=== PATIENT | male | born 1985 | race Caucasian/White ===

== ENCOUNTER 2019-04-13 21:42 | Inpatient (IN) | payer SELFPAY ==
[2019-04-13 22:03] VITALS: BP 146/98; PULSE 120; PULSE 124; RESP 24; RESP 28; TEMP 36.4; O2SAT 94; O2SAT 95; BMI 33.5
--- NOTE | 2019-04-13 22:05 | XRR_ITS ---
PROCEDURE INFORMATION: Exam: XR Chest, 1 View Exam date and time: 04/13/2019 10:46 PM Age: 33 years old Clinical indication: Chest pain; On breathing; Patient HX: SOB; Additional info: Short of breath TECHNIQUE: Imaging protocol: XR of the chest Views: 1 view. COMPARISON: No relevant prior studies available. FINDINGS: Lungs: Nonspecific bibasilar consolidation is present, consistent with atelectasis, edema, or pneumonia. This is greater on the right. There is mild vascular congestion and cephalization of flow. Pleural space: Unremarkable. No pleural effusion. No pneumothorax. Heart/Mediastinum: The heart is enlarged. Bones/joints: No acute abnormality. XR/XR chest 1V portable [id number] IMPRESSION: Nonspecific bibasilar consolidation is present, consistent with atelectasis, edema, or pneumonia. This is greater on the right.
--- NOTE | 2019-04-13 22:07 | W.ED.GENADLT ---
HPI - General Adult General: Chief complaint: General Medical Stated complaint: COUGH Time Seen by Provider: 04/13/19 22:02 History of Present Illness: HPI narrative: Patient comes in today with complaints of cough and pain with deep respiration. Patient reports illness for the last 2 days. Patient is anxious. Patient denies any chronic medical problems or history. Associated symptoms: Reports dyspnea Review of Systems General: Reports: 10 or more systems reviewed and unremarkable except in HPI and below Resp: Reports: shortness of breath and non-productive cough PFSH ED PFSH: Statuses (acute, chronic, etc) shown below reflect problem list status as previously entered and may not be historically accurate Social History Smoking and tobacco status: never smoked Physical Exam Const: COMMON NORMALS: no apparent distress and oriented x3 GENERAL APPEARANCE: cooperative HENMT: COMMON NORMALS: normocephalic, external ears normal, EAC's normal, TM's normal bilaterally and external nose normal HEAD & SCALP: normal to inspection and normocephalic FACE & SINUS: normal facial exam NOSE: external nose normal GENERAL EAR: hearing not grossly impaired EXTERNAL EAR: Yes external ears normal EXTERNAL AUDITORY CANAL: EAC's normal TYMPANIC MEMBRANE: TM's normal bilaterally MOUTH: oral and palatal mucosa normal THROAT: posterior oropharynx normal Eye: COMMON NORMALS: PERRL and EOMs intact bilaterally PUPIL: Yes PERRL Neck/C-Spine: COMMON NORMALS: full ROM and no lymphadenopathy Lymph: LYMPHATIC: no lymphedema noted Chest: COMMONS NORMALS: inspection of chest normal and palpation of chest normal Resp: COMMON NORMALS: normal respiratory effort AUSCULTATION: rhonchi (mild) upper bilaterally Cardio: COMMON NORMALS: regular rate and regular rhythm RATE: regular rate RHYTHM: regular rhythm GI: COMMON NORMALS: normal to inspection, nondistended, normoactive bowel sounds and non-tender : COMMON NORMALS: Yes no CVA tenderness BLADDER/KIDNEY EXAM: Yes no CVA tenderness Back/Pelvis: COMMON NORMALS: no CVA tenderness and thoracic and lumbar spine normal to inspection Extremity: COMMON NORMALS: normal to inspection GENERAL: No edema Neuro: COMMON NORMALS: oriented x3, moves all extremities and no focal motor deficits Psych: COMMON NORMALS: cooperative ATTITUDE: Yes other (anxious) Skin: COMMON NORMALS: no rashes or lesions noted GENERAL SKIN EXAM: no rashes or lesions noted Course Vital Signs: Vital signs: Vital Signs Temperature 97.6 F 04/13/19 22:03 Pulse Rate 115 H 04/14/19 02:31 Respiratory Rate 25 H 04/14/19 02:31 Blood Pressure 141/101 04/14/19 02:31 Pulse Oximetry 95 04/14/19 02:31 MDM - General Adult MDM Narrative: Medical decision making narrative: Patient comes in today with complaints of shortness of breath for the last week. Patient states that over 1 week he has had increasing shortness of breath to the point that he was unable to get up and go to work today. 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 Patient does have a history of drug use which is methamphetamines. Patient does report no other chronic medical history. Respirations were tachypneic in the upper 20s, lungs were decreased in the bases. Pulse oxygen was 95% on room air. Skin was warm and dry color is pink. Abdomen was soft nontender. Differential diagnosis is influenza, pneumonia, bronchitis, upper respiratory infection. Review of the chest x-ray noted pneumonia in the bilaterally and increased on the right. And very enlarged heart. This prompted further investigation of the heart. Laboratory values noted a slight elevation leukocytes of 12,000, CMP was insignificant. EKG noted sinus tachycardia in the 110s with l left atrial enlargement and a left axis deviation. Troponin was elevated at 500, and BNP was slightly elevated at 6000. D-dimer was high at 1.26. CTA for PE protocol noted no pulmonary emboli and just reinforced the infiltrate bibasilar with increased on the right and possible pulmonary edema. It was reviewed with Dr. Taveras who agreed to discuss with hospitalist further treatment with as inpatient for evaluation for endocarditis or myocarditis. Patient was started on Lasix and nitrates and will be continued on antibiotics for pneumonia. Patient did admit to use of methamphetamines but reports that he had stopped 3 months ago when he started getting weaker and having more shortness of breath. Further laboratory testing did show that patient did test positive for amphetamines today remainder of labs were again insignificant. Patient needs admission for monitoring, IV antibiotics, further testing with echocardiogram. Lab Data: Labs: Lab Results 04/13/19 04/13/19 04/13/19 Range/Units 11:01 11:01 11:01 WBC 12.1 H (4.0-10.0) 10^3/ uL RBC 5.14 (4.1-5.3) 10^6/u L Hgb 12.9 (11.7-16.6) g/dL Hct 43.9 (42.0-52.0) % MCV 85.4 (80-94) fL MCH 25.1 L (28.0-34.0) pg MCHC 29.4 L (30.0-36.0) g/dL RDW 15.5 H (12.1-15.1) % Plt Count 346 (130-400) 10^3/c mm MPV 10.8 H (7.4-10.4) fL Neut % (Auto) 80.0 % Lymph % (Auto) 14.1 % Mesa % (Auto) 4.1 % Eos % (Auto) 0.9 % Baso % (Auto) 0.5 % Neut # (Auto) 9.7 H (1.8-7.7) 10^3/u L Lymph # (Auto) 1.7 (0.8-4.8) 10^3/u L Mesa # (Auto) 0.5 (0.2-0.9) 10^3/u L Eos # (Auto) 0.1 (0.0-0.8) 10^3/u L Baso # (Auto) 0.1 (0.0-0.1) 10^3/u L Nucleated RBC % (a uto) 0 % Nucleated RBCs # 0.0 /100WBC D-Dimer 1.26 H (0-0.59) ug/mIFE U Sodium 139 (136-145) mmol/L Potassium 4.4 (3.5-5.1) mmol/L Chloride 105 (98-107) mmol/L Carbon Dioxide 23 (22-29) mmol/L Anion Gap 15.4 (5-19) BUN 15 (6-20) mg/dL Creatinine 1.1 (0.7-1.2) mg/dL GFR Calculation 76.6 L (90-130) mL/min Glucose 141 H (74-109) mg/dL Lactic Acid (0.5-2.2) mmol/L Calcium 9.3 (8.5-10.5) mg/dL Total Bilirubin 0.6 (0.15-1.2) mg/dL AST 27 (0-40) U/L ALT 26 (0-41) U/L Alkaline Phosphata se 92 (40-130) IU/L Troponin T Baselin e (0-15) ng/mL Troponin T 120 Min [place] (0-15) ng/mL Delta Troponin T (0-10) ABS# NT-Pro-B Natriuret Pep (0-125) pg/mL Total Protein 6.6 (6.6-8.7) g/dL Albumin 3.4 L (3.5-5.2) g/dL Globulin 3.2 (1.3-4.6) g/dL TSH (0.27-4.20) uIU/ mL Urine Opiates Scre en (Negative) ng/mL Ur Barbiturates Sc reen (Negative) ng/mL Ur Phencyclidine S crn (Negative) ng/mL Ur Amphetamines Sc reen (Negative) ng/mL U Benzodiazepines Scrn (Negative) ng/mL Urine Cocaine Scre en (Negative) ng/mL U Marijuana (THC) Screen (Negative) ng/mL Ethyl Alcohol (0-10) mg/dL Influenza Type A A g (Negative) POC Influenza B Ag (Negative) 04/13/19 04/13/19 04/14/19 Range/Units 11:01 22:15 00:01 WBC (4.0-10.0) 10^3/ uL RBC (4.1-5.3) 10^6/u L Hgb (11.7-16.6) g/dL Hct (42.0-52.0) % MCV (80-94) fL MCH (28.0-34.0) pg MCHC (30.0-36.0) g/dL RDW (12.1-15.1) % Plt Count (130-400) 10^3/c mm MPV (7.4-10.4) fL Neut % (Auto) % Lymph % (Auto) % Mes[place] % (Auto) % Eos % (Auto) % Baso % (Auto) % Neut # (Auto) (1.8-7.7) 10^3/u L Lymph # (Auto) (0.8-4.8) 10^3/u L Mesa # (Auto) (0.2-0.9) 10^3/u L Eos # (Auto) (0.0-0.8) 10^3/u L Baso # (Auto) (0.0-0.1) 10^3/u L Nucleated RBC % (a uto) % Nucleated RBCs # /100WBC D-Dimer (0-0.59) ug/mIFE U Sodium (136-145) mmol/L Potassium (3.5-5.1) mmol/L Chloride (98-107) mmol/L Carbon Dioxide (22-29) mmol/L Anion Gap (5-19) BUN (6-20) mg/dL Creatinine (0.7-1.2) mg/dL GFR Calculation (90-130) mL/min Glucose (74-109) mg/dL Lactic Acid (0.5-2.2) mmol/L Calcium (8.5-10.5) mg/dL Total Bilirubin (0.15-1.2) mg/dL AST (0-40) U/L ALT (0-41) U/L Alkaline Phosphata se (40-130) IU/L Troponin T Baselin e 505 H* (0-15) ng/mL Troponin T 120 Min [place] (0-15) ng/mL Delta Troponin T (0-10) ABS# NT-Pro-B Natriuret Pep (0-125) pg/mL Total Protein (6.6-8.7) g/dL Albumin (3.5-5.2) g/dL Globulin (1.3-4.6) g/dL TSH (0.27-4.20) uIU/ mL Urine Opiates Scre en Negative (Negative) ng/mL Ur Barbiturates Sc reen Negative (Negative) ng/mL Ur Phencyclidine S crn Negative (Negative) ng/mL Ur Amphetamines Sc reen Positive H (Negative) ng/mL U Benzodiazepines Scrn Negative (Negative) ng/mL Urine Cocaine Scre en Negative (Negative) ng/mL U Marijuana (THC) Screen Negative (Negative) ng/mL Ethyl Alcohol (0-10) mg/dL Influenza Type A A g Negative (Negative) POC Influenza B Ag Negative (Negative) 04/14/19 04/14/19 04/14/19 Range/Units 00:25 00:25 00:25 WBC (4.0-10.0) 10^3/ uL RBC (4.1-5.3) 10^6/u L Hgb (11.7-16.6) g/dL Hct (42.0-52.0) % MCV (80-94) fL MCH (28.0-34.0) pg MCHC (30.0-36.0) g/dL RDW (12.1-15.1) % Plt Count (130-400) 10^3/c mm MPV (7.4-10.4) fL Neut % (Auto) % Lymph % (Auto) % Mes[place] % (Auto) % Eos % (Auto) % Baso % (Auto) % Neut # (Auto) (1.8-7.7) 10^3/u L Lymph # (Auto) (0.8-4.8) 10^3/u L [place] # (Auto) (0.2-0.9) 10^3/u L Eos # (Auto) (0.0-0.8) 10^3/u L Baso # (Auto) (0.0-0.1) 10^3/u L Nucleated RBC % (a uto) % Nucleated RBCs # /100WBC D-Dimer (0-0.59) ug/mIFE U Sodium (136-145) mmol/L Potassium (3.5-5.1) mmol/L Chloride (98-107) mmol/L Carbon Dioxide (22-29) mmol/L Anion Gap (5-19) BUN (6-20) mg/dL Creatinine (0.7-1.2) mg/dL GFR Calculation (90-130) mL/min Glucose (74-109) mg/dL Lactic Acid 2.5 H (0.5-2.2) mmol/L Calcium (8.5-10.5) mg/dL Total Bilirubin (0.15-1.2) mg/dL AST (0-40) U/L ALT (0-41) U/L Alkaline Phosphata se (40-130) IU/L Troponin T Baselin e (0-15) ng/mL Troponin T 120 Min [place] 510.00 H (0-15) ng/mL Delta Troponin T 5 (0-10) ABS# NT-Pro-B Natriuret Pep 6511 H (0-125) pg/mL Total Protein (6.6-8.7) g/dL Albumin (3.5-5.2) g/dL Globulin (1.3-4.6) g/dL TSH 0.93 (0.27-4.20) uIU/ mL Urine Opiates Scre en (Negative) ng/mL Ur Barbiturates Sc reen (Negative) ng/mL Ur Phencyclidine S crn (Negative) ng/mL Ur Amphetamines Sc reen (Negative) ng/mL U Benzodiazepines Scrn (Negative) ng/mL Urine Cocaine Scre en (Negative) ng/mL U Marijuana (THC) Screen (Negative) ng/mL Ethyl Alcohol < 10 (0-10) mg/dL Influenza Type A A g (Negative) POC Influenza B Ag (Negative) EKG Data^: EKG 1: Attestation: I personally reviewed and interpreted this EKG as follows: (2306, sinus tack 119, Left atrial enlargment, left axis deviation, no ectopy, no previous, wjw) Computer generated interpretation: Chest X-Ray 04/13/19 22:05 IMPRESSION: Nonspecific bibasilar consolidation is present, consistent with atelectasis, edema, or pneumonia. This is greater on the right. Chest CTA 04/14/19 00:27 IMPRESSION: 1. There is diffuse patchy airspace density, which may represent pneumonia, pulmonary edema, or inflammatory pneumonitis such as ARDS. 2. There is no pulmonary embolus. Radiation Dose CTDIVOL = (mGy): DLP = 625.12 (mGy-cm) EKG 2: Attestation: I personally reviewed and interpreted this EKG as follows: (0058, sinus tach 116, regurlar, no ectopy, no ST elevation, no change from prior EKG. wjw) Computer generated interpretation: Chest X-Ray 04/13/19 22:05 IMPRESSION: Nonspecific bibasilar consolidation is present, consistent with atelectasis, edema, or pneumonia. This is greater on the right. Chest CTA 04/14/19 00:27 IMPRESSION: 1. There is diffuse patchy airspace density, which may represent pneumonia, pulmonary edema, or inflammatory pneumonitis such as ARDS. 2. There is no pulmonary embolus. Radiation Dose CTDIVOL = (mGy): DLP = 625.12 (mGy-cm) Discharge Plan Discharge Patient Disposition: Admitted As Inpatient Admit Provider: Kendra Varma Clinical Impression: CHF (congestive heart failure) Qualifiers: Heart failure type: unspecified Heart failure chronicity: acute Qualified Code(s): I50.9 - Heart failure, unspecified Pneumonia Qualifiers: Pneumonia type: due to unspecified organism Laterality: bilateral Lung location: lower lobe of lung Qualified Code(s): J18.9 - Pneumonia, unspecified organism Condition: Stable Referrals: Abdoulaye Mccarty DO [Primary Care Provider] - Discharge Date/Time: 04/14/19 02:32 Coding Level of Care Code ED Crotch Piece Baster for Chg Fwd Exam Problem Focused
[2019-04-13] MEDS: LORazepam 1 mg Tablet PO (22:22)
[2019-04-13] MEDS: albuterol 8 gm MDI 2 PUFF INHALATION (22:43)
[2019-04-13 22:44] VITALS: PULSE 112; RESP 20; O2SAT 92
[2019-04-13 22:50] LABS: Influenza A by IFA Negative (Negative); Influenza B by IFA Negative (Negative)
--- NOTE | 2019-04-13 22:54 | ECG_ITS ---
Measurements Intervals [place] Rate: 119 P: 68 ID: [id number] QRS: -40 QRSD: 113 T: 61 QT: 377 QTc: 531 SINUS TACHYCARDIA LEFT ATRIAL ENLARGEMENT [-0.15mV P WAVE IN V1/V2] LEFT AXIS DEVIATION [QRS AXIS < -30] MODERATE INTRAVENTRICULAR CONDUCTION DELAY [110+ ms QRS DURATION] NONSPECIFIC T-WAVE ABNORMALITY No previous ECG available for comparison Electronically Signed On 04-14-2019 15:43:09 BENCH PRESS OPERATOR by Renetta Astorga M.D. [id number]
[2019-04-13 23:14] LABS: Basophils # 0.1 10^3/uL (0.0-0.1); Basophils % 0.5 %; Eosinophils # 0.1 10^3/uL (0.0-0.8); Eosinophils % 0.9 %; Hematocrit 43.9 % (42.0-52.0); Hemoglobin 12.9 g/dL (11.7-16.6); Lymphocytes # 1.7 10^3/uL (0.8-4.8); Lymphocytes % 14.1 %; Mean Corpuscular HGB Conc 29.4 g/dL (30.0-36.0); Mean Corpuscular Hemoglobin 25.1 pg (28.0-34.0); Mean Corpuscular Volume 85.4 fL (80-94); Mean Platelet Volume 10.8 fL (7.4-10.4); Monocytes # 0.5 10^3/uL (0.2-0.9); Monocytes % 4.1 %; Neutrophils # 9.7 10^3/uL (1.8-7.7); Nucleated Red Blood Cells % 0 %; Platelet Count 346 10^3/cmm (130-400); Red Blood Count 5.14 10^6/uL (4.1-5.3); Red Cell Distribution Width 15.5 % (12.1-15.1); White Blood Count 12.1 10^3/uL (4.0-10.0)
[2019-04-13] MEDS: dexamethasone 10 mg/mL INJ IM (23:25)
[2019-04-13] MEDS: cefTRIAXone 1,000 MG in sodium chloride 0.9% (plus) 50 ML 100 MG IV (23:30)
[2019-04-13] MEDS: sodium chloride 0.9% 1,000 ML 999 ML IV (23:31)
[2019-04-13 23:39] LABS: Alanine Aminotransferase 26 U/L (0-41); Albumin Level 3.4 g/dL (3.5-5.2); Alkaline Phosphatase 92 IU/L (40-130); Anion Gap 15.4 (5-19); Aspartate Amino Transferase 27 U/L (0-40); Blood Urea Nitrogen 15 mg/dL (6-20); Calcium 9.3 mg/dL (8.5-10.5); Carbon Dioxide 23 mmol/L (22-29); Chloride 105 mmol/L (98-107); Globulin 3.2 g/dL (1.3-4.6); Glomerular Filtration Rate 76.6 mL/min (90-130); Glucose 141 mg/dL (74-109); Potassium 4.4 mmol/L (3.5-5.1); Sodium 139 mmol/L (136-145); Total Bilirubin 0.6 mg/dL (0.15-1.2); Total Protein 6.6 g/dL (6.6-8.7)
[2019-04-13 23:41] LABS: D Dimer 1.26 ug/mIFEU (0-0.59)
[2019-04-14] VITALS (16 sets, daily range): BP systolic 133–164; BP diastolic 04–110; PULSE 92–121; RESP 16–25; TEMP 36.3–37.1; O2SAT 19–96
[2019-04-14 00:05] LABS: Troponin(5th) Baseline 505 ng/mL (0-15)
[2019-04-14] MEDS: ipratropium-albuterol 3 mL Neb INHALATION (00:21)
--- NOTE | 2019-04-14 00:27 | CTR_ITS ---
PROCEDURE INFORMATION: Exam: CT Angiography Chest With Contrast Exam date and time: 04/14/2019 12:32 AM Age: 33 years old Clinical indication: Dyspnea; Additional info: Short of breath, high d-dimer TECHNIQUE: Imaging protocol: Computed tomographic angiography of the chest with intravenous contrast. 3D rendering: MIP and/or 3D reconstructed images were created by the technologist. Total DLP: 625.12 mGy-cm Radiation optimization: All CT scans at this facility use at least one of these dose optimization techniques: automated exposure control; mA and/or kV adjustment per patient size (includes targeted exams where dose is matched to clinical indication); or iterative reconstruction. Contrast material: OMNI 350; Contrast volume: 95 ml; Contrast route: IV; COMPARISON: CR XR chest 1V portable [id number] 04/13/2019 10:36 PM FINDINGS: Pulmonary arteries: There is no pulmonary embolus. Aorta: Unremarkable. No aortic aneurysm. No aortic dissection. Lungs: There is diffuse patchy airspace density, which may represent pneumonia, pulmonary edema, or inflammatory pneumonitis such as ARDS. Pleural space: Unremarkable. No pneumothorax. No pleural effusion. Heart: The heart is enlarged. Mediastinum: A small hiatal hernia is present. Kidneys and ureters: There is a 2.8 cm fluid density cyst upper pole left kidney. Lymph nodes: There is no adenopathy in the axilla. There is mediastinal adenopathy. There is a 1.3 cm right paratracheal lymph node image 108. In the aortopulmonary window there are lymph nodes measuring up to 1.7 cm in short axis. Subcarinal lymph node measures 2.8 cm in short axis. Subcentimeter hilar lymph nodes are noted. Bones/joints: Unremarkable. No acute fracture. Soft tissues: Unremarkable. CT/CT angio chest PE protcl [id number] IMPRESSION: 1. There is diffuse patchy airspace density, which may represent pneumonia, pulmonary edema, or inflammatory pneumonitis such as ARDS. 2. There is no pulmonary embolus. Radiation Dose CTDIVOL = (mGy): DLP = 625.12 (mGy-cm)
[2019-04-14] MEDS: nitroglycerin 1 gm/inch oint Pkt 1 INCH TOPICAL ×2 (00:32→20:54)
[2019-04-14] MEDS: aspirin 81 mg Chew Tablet 324 MG PO (00:32)
[2019-04-14] MEDS: iohexol 350 mg/mL 100 mL Btl IV (00:37)
--- NOTE | 2019-04-14 00:54 | ECG_ITS ---
Measurements Intervals [place] Rate: 116 P: 59 AR: 124 QRS: -39 QRSD: 111 T: 33 QT: 373 QTc: 519 SINUS TACHYCARDIA Prolonged QTC POSSIBLE LEFT ATRIAL ENLARGEMENT [-0.1mV P WAVE IN V1/V2] LEFT AXIS DEVIATION [QRS AXIS < -30] MODERATE INTRAVENTRICULAR CONDUCTION DELAY [110+ ms QRS DURATION] NONSPECIFIC T-WAVE ABNORMALITY No previous ECG available for comparison Electronically Signed On 04-14-2019 20:28:16 DIRECTOR OF CONTENT MARKETING by Renetta Astorga M.D. [id number]
[2019-04-14 00:56] LABS: Lactic Sepsis W/Reflex 2.5 mmol/L (0.5-2.2)
[2019-04-14 01:06] LABS: Barbiturates Screen Urine Negative (Negative); Benzodiazepines Screen Urine Negative (Negative); Cocaine Screen Urine Negative (Negative); Opiate Screen Urine Negative (Negative); PCP Screen Urine Negative (Negative); THC Screen Urine Negative (Negative)
[2019-04-14 01:07] LABS: Alcohol Level < 10 mg/dL (0-10); NT Pro B Type Natriuretic Pept 6511 pg/mL (0-125); Thyroid Stimulating Hormone 0.93 uIU/mL (0.27-4.20); Troponin 5 2HR Delta 5 ABS# (0-10)
[2019-04-14 01:25] LABS: Amphetamines Screen Urine Positive (Negative)
[2019-04-14] MEDS: FUROsemide 10 mg/mL SDV 10mL 60 MG IVP (01:34)
[2019-04-14 02:18] LABS: Reflex Lactate Order REFLEX LACTIC ORDERD
[2019-04-14] MEDS: morphine 4 mg/mL SDV 1 mL IVP (02:20)
--- NOTE | 2019-04-14 02:30 | PM.HP ---
Providers/Chief Complaint Admitting Physician: Kendra Varma MD Primary Care Provider: Abdoulaye Mccarty DO Chief Complaint: COUGH History of Present Illness Aubrey Astorga is a 33 year old male who does not have any chronic medical conditions came in with chief complaint of shortness of breath. Patient is stating that about 1 to 2 months ago he started having cough, fever, chills, he attributed his symptoms to flulike symptoms, since then he has been having shortness of breath. His shortness of breath gets worse on ambulation but recently is been happening at rest, he has been experiencing orthopnea and PND, he also noticed that his legs are swollen and his breathing is getting heavier. He is endorsing to subjective fevers, denying any history of coronary disease, [place], thyroid disease, hepatic disease, liver or renal disease. He is endorsing to use of amphetamines without any use of cocaine or marijuana. He never had these current symptoms before. He has no travel outside [facility]. No recent tick bites. He smokes 1 pack/day. Review of Systems Const: Reports: fever, chills, body aches, change in weight, fatigue, malaise and diaphoresis Eyes: Denies: change in vision, photophobia or eye redness ENMT: Denies: throat pain or uvular edema Card: Reports: edema, lightheadedness, shortness of breath on exertion and shortness of breath when lying down; Denies: chest pain or palpitations Resp: Reports: shortness of breath and non-productive cough GI: Denies: abdominal pain, nausea or vomiting : Denies: flank pain, difficulty urinating or urinary frequency Musc: Denies: neck pain or back pain Skin/Breast: Denies: rash Neuro: Denies: headache Psych: Denies: anxiety Endo: Denies: excessive urination Jd/Lymph: Denies: easy bruising All/Imm: Denies: hives Medications/Allergies Home Medications Medication Instructions Recorded Confirmed Last Taken Type No Known Home Medications 04/13/19 04/13/19 Unknown History Allergies Allergy/AdvReac Type Severity Reaction Status Date / Time No Known Allergies Allergy Verified 04/13/19 22:06 PFSH Acute PFSH: Statuses (acute, chronic, etc) shown below reflect problem list status as previously entered and may not be historically accurate Medical History (Updated 04/14/19 @ 02:49 by Kendra Varma MD) No pertinent past medical history (Acute) Surgical History (Updated 04/14/19 @ 02:49 by Kendra Varma MD) No pertinent past surgical history (Acute) Family History (Updated 04/14/19 @ 02:49 by Kendra Varma MD) Mother CAD (coronary artery disease) Social History (Updated 04/14/19 @ 02:50 by Kendra Varma MD) Smoking and tobacco status: current every day smoker cigarettes Packs smoked per day: 1 Alcohol intake: current Alcohol intake frequency: few times a week Substance/Drug Use: current Substance/Drug use type: Amphetamines Lives independently: Yes Household members: significant other 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 Vitals/I&O/Wt Last Vital Signs Temp 97.6 F 04/13/19 22:03 Pulse 115 H 04/14/19 02:21 Resp 25 H 04/14/19 02:21 BP 164/04 04/14/19 02:21 Pulse Ox 95 04/14/19 02:21 04/13/19 04/13/19 04/14/19 14:59 22:59 06:59 Intake Total 1101 / 1101 Output Total 1700 / 1700 Balance -599 / -599 Weight last 48 hrs Weight 131.542 kg Physical Exam Narrative: EXAM NARRATIVE: This is aN obese male Was lying flat in his bed With multiple urine bottles at the bedside His urine is clear yellow Looks fluid overloaded with positive JVD and bilateral 1+ pitting edema Lung auscultation shows mild crackles at the bases however no adventitious sounds or crackles heard in mid and upper zone Distended bloated abdomen, visceral obesity, bowel sounds present, nontender, Neurologically nonfocal exam, Lower extremity does not show any sign of ischemia getting ulcer has hyperemic change to tarsal joints Thyroid not palpable EOMI, PERRLA Data : 04/13/19 11:01 04/13/19 11:01 Micro: Microbiology 04/14/19 00:25 Blood Culture - Preliminary Blood SPECIMEN COLLECTED 04/14/19 00:30 Blood Culture - Preliminary Blood SPECIMEN COLLECTED A&P Assessment and plan (1) Myocarditis: Status: Acute Code(s): I51.4 - Myocarditis, unspecified (2) CHF (congestive heart failure): Status: Acute Qualifiers: Heart failure chronicity: acute Heart failure type: unspecified Qualified Code(s): I50.9 - Heart failure, unspecified Code(s): I50.9 - Heart failure, unspecified (3) Pneumonia: Status: Acute Qualifiers: Laterality: bilateral Lung location: lower lobe of lung Pneumonia type: due to unspecified organism Qualified Code(s): J18.9 - Pneumonia, unspecified organism Code(s): J18.9 - Pneumonia, unspecified organism (4) Prolonged QT interval: Status: Acute Code(s): R94.31 - Abnormal electrocardiogram [ECG] [EKG] Additional A&P Information New onset congestive heart failure Patient suffered from flulike symptoms viral illness few months ago and then started having shortness of breath which has been gradually worsening U tox positive for amphetamine Patient does not have any history of AZ, coronary disease He has high troponin without any active chest pain, EKG showing nonspecific ST changes, no signs of pericarditis on EKG I believe his symptoms are secondary to viral induced myocarditis, chest x-ray showing primary edema with cardiomegaly, BNP 6500 He is na?ve to Lasix I would use 40 mg daily Avoid NSAIDs for now CTA negative for PE CT was obtained because of high d-dimer Echo in the morning, currently diuresing well to IV Lasix 60 mg given in ER, he was also given high-dose aspirin and 10 mg of dexamethasone. Hypertension: Patient does not take any medications at home He has been hypertensive in ER, he has received 1.5 inches of nitro with morphinE We will check TSH level, lipid panel, A1c He met sepsis criteria with leukocytosis, high lactic acid and tachycardia CT chest is showing a possibility of right lower lobe pneumonia Would cover him with ceftriaxone and azithromycin for now Sputum and blood culture Not a candidate to be on fluids because of active CHF DVT prophylaxis: Lovenox GI prophylaxis: Not needed Full code Attestations Medical Necessity Statement*: Anticipating stay to cross more than 2 midnight for new onset heart failure Time Spent in Patient Care: 40 Coding Level of Care Code 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
--- NOTE | 2019-04-14 03:03 | USCV_ITS ---
Rizwan Aubrey Age: 33 Gender: M : 1985 Exam Date: 04/14/2019 12:59 Ordering Phys: Kendra Varma MD Technologist: Lesvia Lucas Exam Location: [facility] [place] Indication: CHF NEW ONSET BP: / HR: 98 Rhythm: Sinus Technical Quality: Technically difficult study MEASUREMENTS (Male / Female) Normal Values 2D ECHO LV Diastolic Diameter PLAX 5.6 cm 4.2 - 5.9 / 3.9 - 5.3 cm LV Systolic Diameter PLAX 4.9 cm LV Chamber Size 5.9 cm IVS Diastolic Thickness 1.0 cm 0.6 - 1.0 / 0.6 - 0.9 cm IVS Systolic Thickness 0.8 cm LVPW Diastolic Thickness 0.9 cm 0.6 - 1.0 / 0.6 - 0.9 cm LVPW Systolic Thickness 0.9 cm RV Chamber Size 4.4 cm LVOT Diameter 2.1 cm LV Ejection Fraction 2D Teich 25.7 % LA Diameter 4.9 cm LA Width 4.6 cm LA Height 6.1 cm RA Width 4.4 cm RA Height 5.8 cm Aorta at Sinotubular Diameter 2.9 cm M-MODE LV Diastolic Diameter MM 8.6 cm 4.2 - 5.9 / 3.9 - 5.3 cm LV Systolic Diameter MM 6.7 cm LV Ejection Fraction MM Teich 42.4 % IVS Diastolic Thickness MM 1.2 cm 0.6 - 1.0 / 0.6 - 0.9 cm IVS Systolic Thickness MM 1.9 cm LVPW Diastolic Thickness MM 1.2 cm 0.6 - 1.0 / 0.6 - 0.9 cm LVPW Systolic Thickness MM 1.5 cm Aortic Annulus Diameter 3.5 cm LA Ao Ratio MM 1.4 MV E Point Septal Separation 2.0 cm DOPPLER AV Peak Velocity 133.0 cm/s LVOT Peak Velocity 114.0 cm/s AV Area Cont Eq vti 3.4 cm squared AV Area Cont Eq pk 3.1 cm squared MV Area PHT 5.5 cm squared MV E' Velocity 139.0 cm/s TR Peak Velocity 254.0 cm/s TR Peak Gradient 25.8 mmHg TR Mean Velocity 185.7 cm/s TR Mean Gradient 14.8 mmHg TR Velocity Time Integral 58.8 cm TV Peak E Velocity 91.0 cm/s Right Atrial Pressure 3.0 mmHg Pulmonary Artery Systolic Pressu 28.8 mmHg FINDINGS Left Ventricle Diffuse hypokinesia left ventricle with ejection fraction around 40%. Mildly dilated left ventricle cavity. Right Ventricle Normal right ventricular systolic function. Right Atrium Normal right atrial size. Left Atrium Mildly increased left atrial size. Mitral Valve Trace mitral valve regurgitation. Aortic Valve Thickened aortic valve. Tricuspid Valve [id number] tricuspid valve regurgitation. Pulmonic Valve Pulmonic valve not well visualized. Pericardium No pericardial effusion. Aorta Normal aortic annulus size. CONCLUSIONS Diffuse hypokinesia left ventricle with ejection fraction around 40%. Mildly dilated left ventriclqr cavity. Trace mitral valve regurgitation. Thickened aortic valve. Trace to mild mitral regurgitation Anoa-im-bfgydwcn tricuspid valve regurgitation. Estimated pulmonary artery peak systolic pressure is 29 mmHg There is no pericardial effusion. There are no intracardiac masses. No previous study is available for comparison. Dr Renetta Astorga MD FACC (Electronically Signed) Final Date: 14 April 2019 14:33 S
[2019-04-14] MEDS: lisinopril 10 mg Tablet PO ×3 (03:20→20:54)
[2019-04-14] MEDS: enoxaparin 40 mg/0.4 mL Syringe SUBCUT (03:20)
--- NOTE | 2019-04-14 03:20 | PC.NURSE ---
At 0320 patient placed on 2L nasal cannula for oxygen saturation of 87% on room air. After oxygen applied patients saturations came up to 92% and will continue to monitor.
[2019-04-14 04:16] LABS: Basophils % 0.1 %; Hematocrit 41.8 % (42.0-52.0); Hemoglobin 12.9 g/dL (11.7-16.6); Lymphocytes # 0.4 10^3/uL (0.8-4.8); Lymphocytes % 3.7 %; Mean Corpuscular HGB Conc 30.9 g/dL (30.0-36.0); Mean Corpuscular Hemoglobin 25.3 pg (28.0-34.0); Mean Corpuscular Volume 82.1 fL (80-94); Mean Platelet Volume 10.9 fL (7.4-10.4); Monocytes # 0.1 10^3/uL (0.2-0.9); Neutrophils # 10.6 10^3/uL (1.8-7.7); Neutrophils % 94.6 %; Nucleated Red Blood Cells % 0 %; Platelet Count 379 10^3/cmm (130-400); Red Blood Count 5.09 10^6/uL (4.1-5.3); Red Cell Distribution Width 15.3 % (12.1-15.1); White Blood Count 11.2 10^3/uL (4.0-10.0)
[2019-04-14 04:29] LABS: Anion Gap 18.1 (5-19); Blood Urea Nitrogen 15 mg/dL (6-20); Carbon Dioxide 22 mmol/L (22-29); Chloride 102 mmol/L (98-107); Glomerular Filtration Rate 76.6 mL/min (90-130); Glucose 195 mg/dL (74-109); Lactic Acid level (Lactate) 2.2 mmol/L (0.5-2.2); Osmolality Calculated 288 mOsm/kg (285-295); Potassium 4.1 mmol/L (3.5-5.1); Sodium 138 mmol/L (136-145)
[2019-04-14 04:40] LABS: Chol HDL Ratio 3.19 mg/dL (1.0-5.00); Cholesterol 118 mg/dL (0-200); HDL Cholesterol 37 mg/dL (60-100); LDL Cholesterol Calculated 66 mg/dL (50-129); LDL HDL Ratio 1.78 RATIO (0.00-3.22); Magnesium 1.7 mg/dL (1.7-2.3); Thyroid Stimulating Hormone 0.47 uIU/mL (0.27-4.20); Triglycerides 73 mg/dL (0-150)
--- NOTE | 2019-04-14 04:54 | ECG_ITS ---
Measurements Intervals [place] Rate: 101 P: 54 AK: 161 QRS: -33 QRSD: 119 T: -2 QT: 387 QTc: 502 SINUS TACHYCARDIA POSSIBLE RIGHT ATRIAL ENLARGEMENT [0.25mV P WAVE] LEFT ATRIAL ENLARGEMENT [-0.15mV P WAVE IN V1/V2] MARKED LEFT AXIS DEVIATION [QRS AXIS < -30] POSSIBLE LEFT VENTRICULAR HYPERTROPHY [VOLTAGE CRITERIA PLUS LAE OR QRS WIDENING] NONSPECIFIC T-WAVE ABNORMALITY No previous ECG available for comparison Electronically Signed On 04-15-2019 21:03:11 INSTRUMENT PROCESSING TECH by Renetta Astorga M.D. [email or web address]
--- NOTE | 2019-04-14 05:36 | PC.NURSE ---
Dr. Kojo lopez messaged to remove patients nitro paste at 0700. Will continue to [facility]
[2019-04-14 05:54] LABS: Estmated Average Glucose 126
--- NOTE | 2019-04-14 08:00 | ECG_ITS ---
Measurements Intervals [place] Rate: 116 P: 68 TX: 132 QRS: -30 QRSD: 118 T: 78 QT: 386 QTc: 538 SINUS TACHYCARDIA POSSIBLE LEFT ATRIAL ENLARGEMENT [-0.1mV P WAVE IN V1/V2] MODERATE INTRAVENTRICULAR CONDUCTION DELAY [105+ ms QRS DURATION, 80+ ms Q/S IN V1/V2, NO Q AND 60+ ms R IN I/aVL/V5/V6] NONSPECIFIC T-WAVE ABNORMALITY Prolonged QTC No previous ECG available for comparison Electronically Signed On 04-14-2019 20:29:16 CD MANUFACTURING SUPERVISOR by Renetta Astorga M.D. [email or web address]
[2019-04-14] MEDS: FUROsemide 20 mg Tablet 40 MG PO (08:55)
[2019-04-14] MEDS: azithromycin 250 mg Tablet 500 MG PO (08:56)
--- NOTE | 2019-04-14 12:09 | PC.CHAP ---
Pastoral Care Encounter/Spiritual Assessment Type of Contact [] Declined surgery scheduling coordinator visit [] Patient/Family/Request visit [] Outpatient visit [] Follow-up visit [] Physician referral [] Code/Alert [] Routine visit [] Staff referral [] Actively dying [x] Patient sleeping [] Family support [] [] Out of room [] Palliative care [] [] Receiving care in room [] Pre-surgical visit [] Trauma [] Long length of stay [] ICU visit [] Other: Relational/Emotional Strength [] Patient feels connected with others/family/visitors/staff [] Distress [] Loneliness/isolation [] Abandonment Spirituality of Patient [] Person of [place] [] Attends Latter-Day of their [place] [] Believes in Prayer [] Reads Bible or Synagogue materials [] There are Spiritual issues to be addressed Finishing Frame Runner Interventions [] Prayer [] Active listening [] Non-anxious presence [] Spiritual/emotional support [] Crisis/trauma care [] Spiritual counseling [] Bereavement support [] Provided bereavement packet [] Provided Bible/devotional materials [] Provided toy/stuffed animal, coloring book to patient or family member [] Provided Communion [] Anointing/[place] [] Salvation [] Completed spiritual assessment [] Other: Impact on Illness or Injury [] Angry [] Fearful [] Anxious [] Often cries [] Exhaustion [] Unable to work [] Unable to attend roman catholic [] Unable to walk/stand [] Unable to read [] Unable to drive [] Unable to eat/drink [] Unable to sleep [] Unable to be with family [] Patient intubated [] Other: Summary pt.was sleeping, will need a follow uo visit. Time spent with patient 5 min.
--- NOTE | 2019-04-14 17:43 | P.PN_ITS ---
Subjective Subjective: Interval history: Patient reports occasional fevers and chills over the last 2 months. Reports frequent episodes of diaphoresis including nighttime. Absolutely denies any IV drug use but admits to smoking Methamphetamines once weekly.Reports left upper pleuritic chest pain every time he coughs. Denies chest pain otherwise. Denies abdominal pain or problems with bowel movements. Denies problems with urination. 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 Vitals/I&O/Wt Last Vital Signs Temp 98.1 F 04/14/19 16:00 Pulse 105 H 04/14/19 16:00 Resp 20 H 04/14/19 16:00 BP 143/74 04/14/19 16:00 Pulse Ox 92 04/14/19 16:00 04/14/19 04/14/19 04/14/19 06:59 14:59 22:59 Intake Total 1351 / 1351 840 / 840 Output Total 3700 / 3700 1100 / 1100 325 / 1425 Balance -2349 / -2349 -260 / -260 -325 / -585 Weight last 48 hrs Weight 131.542 kg Physical Exam HENMT: COMMON NORMALS: normocephalic HEAD & SCALP: normocephalic Resp: OTHER: Coarse breath sounds throughout. No wheezing Appreciated. Cardio: COMMON NORMALS: regular rate, regular rhythm, S2 normal heart sound, no gallops, no clicks, no murmurs and no rub RATE: regular rate RHYTHM: regular rhythm HEART SOUNDS: S2 normal GI: COMMON NORMALS: normal to inspection, nondistended, normoactive bowel sounds, soft to palpation and non-tender PALPATION: Yes soft Data : 04/14/19 04:06 04/14/19 04:06 Micro: Microbiology 04/14/19 00:25 Blood Culture - Preliminary Blood SPECIMEN COLLECTED 04/14/19 00:30 Blood Culture - Preliminary Blood SPECIMEN COLLECTED A&P Assessment and plan (1) Myocarditis: Status: Acute Code(s): I51.4 - Myocarditis, unspecified (2) CHF (congestive heart failure): Status: Acute Qualifiers: Heart failure chronicity: acute Heart failure type: unspecified Qualified Code(s): I50.9 - Heart failure, unspecified Code(s): I50.9 - Heart failure, unspecified (3) Pneumonia: Status: Acute Qualifiers: Laterality: bilateral Lung location: lower lobe of lung Pneumonia type: due to unspecified organism Qualified Code(s): J18.9 - Pneumonia, unspecified organism Code(s): J18.9 - Pneumonia, unspecified organism (4) Prolonged QT interval: Status: Acute Code(s): R94.31 - Abnormal electrocardiogram [ECG] [EKG] Additional A&P Information New onset congestive heart failure Cardiomyopathy, likely nonischemic. Patient Symptoms has been going on for at least 2 months which is somewhat prolonged for viral infection. Patient has pneumonia based on clinical exam and imaging. Non-ST elevation SC cannot be completely ruled out. 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 No evidence of pericarditis. Discussed case with Dr. Astorga will see patient in consultation as further evaluation with coronary angiogram could be considered. U tox positive for amphetamine but patient absolutely denies IV illicit drug use. 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 Hypertension: Patient does not take any medications at home He has been hypertensive in ER, he has received 1.5 inches of nitro with morphinE We will check TSH level, lipid panel, A1c He met sepsis criteria with leukocytosis, high lactic acid and tachycardia CT chest is showing a possibility of right lower lobe pneumonia I will broaden Antibiotic coverage with Levaquin and vancomycin. Avoid other QT prolonging medications. Will DC azithromycin. Sputum and blood culture Will obtain inflammatory markers And repeat troponin. We'll repeat blood culture one more time. Start patient on gentle Hydration as he is diaphoretic. Monitor urinary output. Tobacco abuse with dependence. Discussed extensively regarding importance of smoking cessation. Patient voiced understanding. 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
--- NOTE | 2019-04-14 18:19 | PC.PHAR ---
Pharmacokinetic dosing service Date: Time: Objective: Patient: STEPHEN DONALD Floor: 103-1 Age: 33 yo Serum creatinine: 1.1 mg/dL Height: 78.0 Inches Weight (kg): 131.542 Diagnosis: Relevant medical/social history: Cultures and sensitivities: Other labs: Assessment: IBW (kg): 91.40 Dosing wt(kg): 131.542 Estimated Creatinine clearance (ml/min): 122.3 CRCL method: Cockcroft and Gault using ibw(default). Drug selected: Vancomycin Loading dose (mg): 0 Vd (liters): 118.4 (factor used: 0.9 L/kg) Franko (hr-1): 0.106 Half life (hrs): 6.54 Recommended dose: 2000 mg Interval: 12 hrs Infusion time (hrs): 2 Predicted peak (mcg/mL): 21.1 Predicted trough (mcg/mL): 7.31 Total body weight is being used for vancomycin dosing. Renal function is stable [ ] /unstable [ ] Recommendations: Give Vancomycin 2000 mg q 12 hrs with an expected Cpeak of 21.1 mcg/ml and an expected Ctrough of 7.31 mcg/ml Renal dosing of other antibiotics (review renal dosing of other medications and list guidelines here): Thank you for the consult, will continue to follow. Signature: Samia Becker [facility]
[2019-04-14 18:37] LABS: C Reactive Protein 34.9 mg/L (0.0-4.9)
[2019-04-14] MEDS: levofloxacin-dextrose 5 % 750 MG/150 ML PREMIX 150 MG IV (18:38)
[2019-04-14] MEDS: lactated ringers 1,000 ML 50 ML IV (18:38)
[2019-04-14 18:48] LABS: Troponin T (5th) Once 268 ng/mL (0-15)
[2019-04-14 18:58] LABS: Erythrocyte Sedimentation Rate 15 mm/hr (0-10)
--- NOTE | 2019-04-14 19:32 | P.CONIM_ITS ---
Providers/Reason For Consult Consulting Physican/Specialty*: Tan Astorga MD/cardiology Reason for Consult*: Patient with cardiomyopathy and elevated troponin T Attending Physician: Dinesh Loza MD Primary Care Provider: Abdoulaye Mccarty DO History of Present Illness History of Present Illness Aubrey Astorga is a 33 year old male, is admitted to the hospital with complaints of progressive shortness of breath, cough, fever and chills. He was found to have elevated troponin, BNP and some medical features of congestive heart failure. Cardiology consult is requested for further cardiac evaluation recommendations. The patient is a very poor historian. He has no previous history for coronary disease, myocardial infarction or congestive heart failure. For the last 2 months, he been having some shortness of breath and cough. He also had intermittent fever and chills. For the last 3 weeks, his symptoms been getting worse. He had some amount of orthopnea as well. No nausea, vomiting or diarrhea. No chest pain or palpitation. No other specific complaints. Has no history for hypertension, diabetes or dyslipidemia. Patient has a history of smoking abuse of 1-1/2 pack a day for the last more than 20 years. He also has a history of methamphetamine abuse(smokes). 3 of alcohol abuse. No sharing of needles. No history for endocarditis. Review of Systems Narrative: CONSTITUTIONAL: Fever chills and cough EYES: No blurring of vision or other visual disturbances lately. ENT: No hoarseness of voice, auditory disturbances or sore throat. CARDIOVASCULAR: As mentioned above. RESPIRATORY: Progressive shortness of breath as mentioned above GASTROINTESTINAL: No hematemesis or melena. GENITOURINARY: History of kidney stones INTEGUMENTARY: No skin rashes or history of skin cancer. NEURO: No transient ischemic attacks or amaurosis. PSYCHIATRIC: No history of psychosis or major depression. HEMATOLOGIC: No bleeding disorders or significant anemia. ENDOCRINE: No history of polyuria or polydipsia. MUSCULOSKELETAL: No recent joint pain or swelling. ALLERGY/IMMUNOLOGY: As mentioned above. Meds/Allergies Home Medications and Allergies Home Medications Medication Instructions Recorded Confirmed Type No Known Home Medications 04/13/19 04/13/19 History Allergies Allergy/AdvReac Type Severity Reaction Status Date / Time No Known Allergies Allergy Verified 04/13/19 22:06 Current Medications Current Medications Generic Name Dose Route Start Last Admin Trade Name Freq PRN Reason Stop Dose Admin Enoxaparin Sodium 40 mg 04/14/19 03:15 04/14/19 03:20 Lovenox SUBCUT 40 mg Q24H NICOLE Administration Furosemide 40 mg 04/14/19 08:00 04/14/19 08:55 Lasix PO 40 mg DAILY@0800 NICOLE Administration Levofloxacin/Dextrose 750 mg in 150 mls @ 150 mls/hr 04/14/19 18:00 04/14/19 18:38 Levaquin-D5w IV 150 mls/hr Q24H NICOLE Administration Protocol Lactated Ringer's 1,000 mls @ 50 mls/hr 04/14/19 18:15 04/14/19 18:38 Lactated Ringers IV 50 mls/hr .Q20H NICOLE Administration Lisinopril 10 mg 04/14/19 18:00 04/14/19 17:43 Prinivil PO 10 mg 1800 NICOLE Administration Nitroglycerin 1.5 inch 04/14/19 02:49 04/14/19 14:01 Nitro-Bid TOPICAL Not Given Q6H NICOLE PFSH Acute PFSH: Statuses (acute, chronic, etc) shown below reflect problem list status as previously entered and may not be historically accurate Medical History Dental abscess (Acute) Kidney stones (Acute) Laceration of index finger without complication (Acute) No pertinent past medical history (Acute) Surgical History No pertinent past surgical history (Acute) Family History Mother CAD (coronary artery disease) Social History Smoking and tobacco status: current every day smoker cigarettes Packs smoked per day: 1 Alcohol intake: current Alcohol intake frequency: few times a week Substance/Drug Use: current Substance/Drug use type: Amphetamines Lives independently: Yes Household members: significant other 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 Not in any acute distress. He is somewhat tachypneic HEENT: No significant pallor, icterus or lymphadenopathy. The pupils are reactant to light. Oral cavity: There are no mucous membrane lesions. Funduscopic examination: Fundus is not visualized NECK: Trachea appears to be central. No masses noted. No JVD or thyromegaly a ppreciated. No carotid bruit. RESPIRATORY: Chest is symmetrical. No intercostals muscle retraction or any accessory muscle activation. There is no chest wall tenderness. Breath sounds are heard bilaterally. Scattered fine and coarse crackles bilaterally. BREASTS: Deferred. HEART: The PMI could not be palpated. No other palpable precordial events. First and second heart sounds are normal. No S3. No significant murmurs. ABDOMEN: No vessel pulsations or distention. No tenderness. No organomegaly appreciated. No abdominal bruit. Bowel sounds are normally heard. : Deferred. RECTAL: Deferred. LYMPHATIC: No lymphadenopathy noted in the neck or groin. EXTREMITIES: No edema or cyanosis. No clubbing. The pulses are symmetrical bilaterally. The radial, femoral, dorsalis pedis and the posterior tibial pulses are palpated and found to be in good volume and amplitude. Poor hygiene MUSCULOSKELETAL: No acute joint deformities or swelling SKIN: There are no significant scars or skin rash noted. NEUROPSYCHIATRIC: The patient is alert and oriented x3. Appears to be in a somewhat hesitant to answer questions. The higher functions are grossly within normal limits. No tremors or rigidity noted. Data Labs: Other Labs: Abnormal lab results 04/13/19 04/13/19 04/13/19 Range/Units 11:01 11:01 11:01 WBC 12.1 H (4.0-10.0) 10^3/ uL Hct (42.0-52.0) % MCH 25.1 L (28.0-34.0) pg MCHC 29.4 L (30.0-36.0) g/dL RDW 15.5 H (12.1-15.1) % MPV 10.8 H (7.4-10.4) fL Neut # (Auto) 9.7 H (1.8-7.7) 10^3/u L Lymph # (Auto) (0.8-4.8) 10^3/u L [place] # (Auto) (0.2-0.9) 10^3/u L ESR (0-10) mm/hr D-Dimer 1.26 H (0-0.59) ug/mIFE U GFR Calculation 76.6 L (90-130) mL/min Glucose 141 H (74-109) mg/dL Lactic Acid (0.5-2.2) mmol/L Troponin T Gen 5 n g/L (0-15) ng/mL Troponin T Baselin e (0-15) ng/mL Troponin T 120 Min [place] (0-15) ng/mL C-Reactive Protein (0.0-4.9) mg/L NT-Pro-B Natriuret Pep (0-125) pg/mL Albumin 3.4 L (3.5-5.2) g/dL HDL Cholesterol (60-100) mg/dL Ur Amphetamines Sc reen (Negative) ng/mL 04/13/19 04/14/19 04/14/19 Range/Units 11:01 00:01 00:25 WBC (4.0-10.0) 10^3/ uL Hct (42.0-52.0) % MCH (28.0-34.0) pg MCHC (30.0-36.0) g/dL RDW (12.1-15.1) % MPV (7.4-10.4) fL Neut # (Auto) (1.8-7.7) 10^3/u L Lymph # (Auto) (0.8-4.8) 10^3/u L [place] # (Auto) (0.2-0.9) 10^3/u L ESR (0-10) mm/hr D-Dimer (0-0.59) ug/mIFE U GFR Calculation (90-130) mL/min Glucose (74-109) mg/dL Lactic Acid (0.5-2.2) mmol/L Troponin T Gen 5 n g/L (0-15) ng/mL Troponin T Baselin e 505 H* (0-15) ng/mL Troponin T 120 Min [place] 510.00 H (0-15) ng/mL C-Reactive Protein (0.0-4.9) mg/L NT-Pro-B Natriuret Pep (0-125) pg/mL Albumin (3.5-5.2) g/dL HDL Cholesterol (60-100) mg/dL Ur Amphetamines Sc reen Positive H (Negative) ng/mL 04/14/19 04/14/19 04/14/19 Range/Units 00:25 00:25 04:06 WBC 11.2 H (4.0-10.0) 10^3/ uL Hct 41.8 L (42.0-52.0) % MCH 25.3 L (28.0-34.0) pg MCHC (30.0-36.0) g/dL RDW 15.3 H (12.1-15.1) % MPV 10.9 H (7.4-10.4) fL Neut # (Auto) 10.6 H (1.8-7.7) 10^3/u L Lymph # (Auto) 0.4 L (0.8-4.8) 10^3/u L [place] # (Auto) 0.1 L (0.2-0.9) 10^3/u L ESR (0-10) mm/hr D-Dimer (0-0.59) ug/mIFE U GFR Calculation (90-130) mL/min Glucose (74-109) mg/dL Lactic Acid 2.5 H (0.5-2.2) mmol/L Troponin T Gen 5 n g/L (0-15) ng/mL Troponin T Baselin e (0-15) ng/mL Troponin T 120 Min [place] (0-15) ng/mL C-Reactive Protein (0.0-4.9) mg/L NT-Pro-B Natriuret Pep 6511 H (0-125) pg/mL Albumin (3.5-5.2) g/dL HDL Cholesterol (60-100) mg/dL Ur Amphetamines Sc reen (Negative) ng/mL 04/14/19 04/14/19 04/14/19 Range/Units 04:06 04:06 17:43 WBC (4.0-10.0) 10^3/ uL Hct (42.0-52.0) % MCH (28.0-34.0) pg MCHC (30.0-36.0) g/dL RDW (12.1-15.1) % MPV (7.4-10.4) fL Neut # (Auto) (1.8-7.7) 10^3/u L Lymph # (Auto) (0.8-4.8) 10^3/u L [place] # (Auto) (0.2-0.9) 10^3/u L ESR 15 H (0-10) mm/hr D-Dimer (0-0.59) ug/mIFE U GFR Calculation 76.6 L (90-130) mL/min Glucose 195 H (74-109) mg/dL Lactic Acid (0.5-2.2) mmol/L Troponin T Gen 5 n g/L (0-15) ng/mL Troponin T Baselin e (0-15) ng/mL Troponin T 120 Min [place] (0-15) ng/mL C-Reactive Protein (0.0-4.9) mg/L NT-Pro-B Natriuret Pep (0-125) pg/mL Albumin (3.5-5.2) g/dL HDL Cholesterol 37 L (60-100) mg/dL Ur Amphetamines Sc reen (Negative) ng/mL 04/14/19 04/14/19 Range/Units 17:43 17:43 WBC (4.0-10.0) 10^3/ uL Hct (42.0-52.0) % MCH (28.0-34.0) pg MCHC (30.0-36.0) g/dL RDW (12.1-15.1) % MPV (7.4-10.4) fL Neut # (Auto) (1.8-7.7) 10^3/u L Lymph # (Auto) (0.8-4.8) 10^3/u L [place] # (Auto) (0.2-0.9) 10^3/u L ESR (0-10) mm/hr D-Dimer (0-0.59) ug/mIFE U GFR Calculation (90-130) mL/min Glucose (74-109) mg/dL Lactic Acid (0.5-2.2) mmol/L Troponin T Gen 5 n g/L 268 H* (0-15) ng/mL Troponin T Baselin e (0-15) ng/mL Troponin T 120 Min [place] (0-15) ng/mL C-Reactive Protein 34.9 H (0.0-4.9) mg/L NT-Pro-B Natriuret Pep (0-125) pg/mL Albumin (3.5-5.2) g/dL HDL Cholesterol (60-100) mg/dL Ur Amphetamines Sc reen (Negative) ng/mL Micro: Micro: Microbiology 04/14/19 17:43 Blood Culture - Pr eliminary Blood SPECIMEN [facility] 04/14/19 17:47 Blood Culture - Pr eliminary Blood SPECIMEN [facility] 04/14/19 00:25 Blood Culture - Pr eliminary Blood SPECIMEN [facility] 04/14/19 00:30 Blood Culture - Pr eliminary Blood SPECIMEN [facility] Imaging^: CT Chest: Radiologist's impression: 1. There is diffuse patchy airspace density, which may represent pneumonia, pulmonary edema, or inflammatory pneumonitis such as ARDS. 2. There is no pulmonary embolus. CXR: My impression: Mild cardiomegaly. Bilateral lower lobe infiltrate. Increased pulmonary vascular markings. EKG^: EKG 1: My Interpretation: EKG revealed sinus tachycardia with left axis deviation. Nonspecific IVCD. Nonspecific T wave changes. Possible left atrial enlargement. A&P Assessment and plan (1) CHF (congestive heart failure): Patient has some features of congestive heart failure. He may have some form of nonischemic cardiomyopathy. Apparently he never had any chest pain. However possibility of coronary ischemia cannot be excluded. Hemodynamically seems to be stable. Viral cardiomyopathy is a consideration. Status: Acute Qualifiers: Heart failure chronicity: acute Heart failure type: unspecified Qualified Code(s): I50.9 - Heart failure, unspecified Code(s): I50.9 - Heart failure, unspecified (2) Cardiomyopathy: The etiology of the myopathy is not known. We may consider doing a myocardial perfusion imaging, to further evaluate for the etiology. However we may hold off on this until the infection is appropriately treated. Status: Acute Qualifiers: Cardiomyopathy type: other Qualified Code(s): I42.8 - Other cardiomyopathies Code(s): I42.9 - Cardiomyopathy, unspecified (3) Pneumonia: Patient has bilateral pneumonia. He is on spectrum antibiotic coverage. May continue the same. Status: Acute Qualifiers: Laterality: bilateral Lung location: lower lobe of lung Pneumonia t ype: due to unspecified organism Qualified Code(s): J18.9 - Pneumonia, unspecified organism Code(s): J18.9 - Pneumonia, unspecified organism (4) Elevated troponin: This could be related to myocarditis/non-ST elevation myocardial infarction. QTC is prolonged. If there is a significant delta in the repeat troponin T, I may start him on therapeutic dose of Lovenox. He may be continued on the aspirin ;may continue on the topical nitrates. Status: Acute Code(s): R79.89 - Other specified abnormal findings of blood chemistry (5) Sinus tachycardia: This could be multifactorial. The pneumonia, shortness of breath, fever, LV dysfunction, congestive heart failure etc. are cardioverted factors. I may start him on a metoprolol 25 mg p.o. twice daily for further management of his condition. 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
[2019-04-14] MEDS: metoprolol tartrate 25 mg Tablet PO (20:54)
[2019-04-14] MEDS: cefTRIAXone 1,000 MG in sodium chloride 0.9% (plus) 50 ML 100 MG IV (22:33)
[2019-04-15] VITALS (8 sets, daily range): BP systolic 130–151; BP diastolic 72–95; PULSE 90–100; RESP 16–25; TEMP 36.5–36.7; O2SAT 93–97
[2019-04-15] MEDS: enoxaparin 40 mg/0.4 mL Syringe SUBCUT (03:23)
[2019-04-15] MEDS: nitroglycerin 1 gm/inch oint Pkt 1 INCH TOPICAL ×4 (03:23→21:30)
[2019-04-15 06:37] LABS: Troponin T (5th) Once 280 ng/mL (0-15)
[2019-04-15] MEDS: metoprolol tartrate 25 mg Tablet PO ×2 (08:49→17:28)
[2019-04-15] MEDS: FUROsemide 20 mg Tablet 40 MG PO (08:49)
--- NOTE | 2019-04-15 11:10 | PC.NURSE ---
Notified SS/Case Mgt Regarding medical insurance and new meds assistance. Pt does not take any home meds. Choose [facility] pharmacy.
--- NOTE | 2019-04-15 13:10 | P.PN_ITS ---
Subjective Medications: Reviewed: Yes Medication Review Details: Current Medications Albuterol/Ipratropium (Duoneb) 3 ml INHALATION Q4H PRN PRN Reason: SHORTNESS OF BREATH Enoxaparin Sodium (Lovenox) 40 mg SUBCUT Q24H [facility] Last Admin: 04/15/19 03:23 Dose: 40 mg Documented by: Furosemide (Lasix) 40 mg PO DAILY@0800 [facility] Last Admin: 04/15/19 08:49 Dose: 40 mg Documented by: Ceftriaxone Sodium 1,000 mg/ (Sodium Chloride) 50 mls @ 100 mls/hr IV Q24H [facility]; Protocol Last Admin: 04/14/19 22:33 Dose: 100 mls/hr Documented by: Levofloxacin/Dextrose (Levaquin-D5w) 750 mg in 150 mls @ 150 mls/hr IV Q24H [facility]; Protocol Last Admin: 04/14/19 18:38 Dose: 150 mls/hr Documented by: Lactated Ringer's (Lactated Ringers) 1,000 mls @ 50 mls/hr IV .Q20H [facility] Last Admin: 04/14/19 18:38 Dose: 50 mls/hr Documented by: Vancomycin HCl 2,000 mg/ (Sodium Chloride) 500 mls @ 250 mls/hr IV Q12H [facility] Last Admin: 04/15/19 08:49 Dose: 250 mls/hr Documented by: Lisinopril (Prinivil) 20 mg PO 1800 NICOLE Metoprolol Tartrate (Lopressor) 25 mg PO BID [facility] Last Admin: 04/15/19 08:49 Dose: 25 mg Documented by: Nitroglycerin (Nitro-Bid) 1 inch TOPICAL Q6H [facility] Last Admin: 04/15/19 08:49 Dose: 1 inch Documented by: Ondansetron HCl (Zofran) 4 mg IVP Q6H PRN PRN Reason: NAUSEA AND VOMITING Vitals/I&O/Wt Last Vital Signs Temp 98.0 F 04/15/19 12:48 Pulse 92 04/15/19 12:48 Resp 16 04/15/19 12:48 BP 137/91 04/15/19 12:48 Pulse Ox 95 04/15/19 12:48 04/14/19 04/15/19 04/15/19 22:59 06:59 14:59 Intake Total 740 / 1580 400 / 1980 596 / 596 Output Total 750 / 1850 675 / 2525 300 / 300 Balance -10 / -270 -275 / -545 296 / 296 Weight last 48 hrs Weight 290 lb Physical Exam Narrative: EXAM NARRATIVE: GENERAL: Not in any acute distress. Appears sleepy HEENT: No significant pallor, icterus or lymphadenopathy.Oral cavity: There are no mucous membrane lesions. NECK: Trachea appears to be central. No masses noted. No JVD or thyromegaly appreciated. RESPIRATORY: Chest is symmetrical. No intercostals muscle retraction or any accessory muscle activation. There is no chest wall tenderness. Breath sounds are heard bilaterally. [place] coarse crackles. No evidence of any consolidation. BREASTS: Deferred. HEART: The heart sounds are normal. No S3 or S4. Murmurs. No pericardial rub ABDOMEN: No vessel pulsations or distention. No tenderness. No organomegaly appreciated. Bowel sounds are normally heard. : Deferred. RECTAL: Deferred. LYMPHATIC: No lymphadenopathy noted in the neck or groin. EXTREMITIES: No edema or cyanosis. No clubbing. Peripheral pulses are palpated in fairly good volume and amplitude MUSCULOSKELETAL: No acute joint deformities or swelling SKIN: There are no significant scars or skin rash noted. NEUROPSYCHIATRIC: The patient is alert and oriented x3. Appears to be in a good mood. No tremors or rigidity noted. Data : 04/15/19 15:12 04/15/19 15:12 Other Labs: Abnormal lab results 04/13/19 04/13/19 04/13/19 Range/Units 11:01 11:01 11:01 WBC 12.1 H (4.0-10.0) 10^3/uL MCH 25.1 L (28.0-34.0) pg MCHC 29.4 L (30.0-36.0) g/dL RDW 15.5 H (12.1-15.1) % MPV 10.8 H (7.4-10.4) fL Neut # (Auto) 9.7 H (1.8-7.7) 10^3/uL ESR (0-10) mm/hr D-Dimer 1.26 H (0-0.59) ug/mIFEU GFR Calculation 76.6 L (90-130) mL/min Glucose 141 H (74-109) mg/dL Troponin T Gen 5 ng/L (0-15) ng/mL Troponin T Baseline (0-15) ng/mL C-Reactive Protein (0.0-4.9) mg/L Albumin 3.4 L (3.5-5.2) g/dL 04/13/19 04/14/19 04/14/19 Range/Units 11:01 17:43 17:43 WBC (4.0-10.0) 10^3/uL MCH (28.0-34.0) pg MCHC (30.0-36.0) g/dL RDW (12.1-15.1) % MPV (7.4-10.4) fL Neut # (Auto) (1.8-7.7) 10^3/uL ESR 15 H (0-10) mm/hr D-Dimer (0-0.59) ug/mIFEU GFR Calculation (90-130) mL/min Glucose (74-109) mg/dL Troponin T Gen 5 ng/L (0-15) ng/mL Troponin T Baseline 505 H* (0-15) ng/mL C-Reactive Protein 34.9 H (0.0-4.9) mg/L Albumin (3.5-5.2) g/dL 04/14/19 04/15/19 Range/Units 17:43 05:33 WBC (4.0-10.0) 10^3/uL MCH (28.0-34.0) pg MCHC (30.0-36.0) g/dL RDW (12.1-15.1) % MPV (7.4-10.4) fL Neut # (Auto) (1.8-7.7) 10^3/uL ESR (0-10) mm/hr D-Dimer (0-0.59) ug/mIFEU GFR Calculation (90-130) mL/min Glucose (74-109) mg/dL Troponin T Gen 5 ng/L 268 H* 280 H* (0-15) ng/mL Troponin T Baseline (0-15) ng/mL C-Reactive Protein (0.0-4.9) mg/L Albumin (3.5-5.2) g/dL Micro: Microbiology 04/14/19 00:30 Blood Culture - Preliminary Blood NEGATIVE TO DATE 04/14/19 00:25 Blood Culture - Preliminary Blood NEGATIVE TO DATE 04/14/19 17:43 Blood Culture - Preliminary Blood SPECIMEN COLLECTED 04/14/19 17:47 Blood Culture - Preliminary Blood SPECIMEN COLLECTED A&P Assessment and plan (1) Cardiomyopathy: Patient has no clinical evidence of any decompensation. Seems to be tolerating medication so far well. Continue on the current medications. Status: Acute Qualifiers: Cardiomyopathy type: other Qualified Code(s): I42.8 - Other cardiomyo pathies Code(s): I42.9 - Cardiomyopathy, unspecified (2) Sinus tachycardia: This is multifactorial but seems to be getting better Status: Acute Code(s): R00.0 - Tachycardia, unspecified (3) Prolonged QT interval: We may do the repeat EKG in the morning and then decide on further management. May continue the current medications for the time being Status: Acute Code(s): R94.31 - Abnormal electrocardiogram [ECG] [EKG] (4) CHF (congestive heart failure): May continue on the current dose of Lasix. Based on the clinical progress, further recommendations will be made Status: Acute Qualifiers: Heart failure chronicity: acute Heart failure type: unspecified Qualified Code(s): I50.9 - Heart failure, unspecified Code(s): I50.9 - Heart failure, unspecified (5) Elevated troponin: Troponin T level is stable or slightly trending down. Most likely related to myocarditis. May continue on the current measures. 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
[2019-04-15 15:32] LABS: Basophils % 0.2 %; Eosinophils # 0.1 10^3/uL (0.0-0.8); Eosinophils % 0.5 %; Hematocrit 43.5 % (42.0-52.0); Hemoglobin 12.7 g/dL (11.7-16.6); Lymphocytes # 2.7 10^3/uL (0.8-4.8); Lymphocytes % 15.6 %; Mean Corpuscular HGB Conc 29.2 g/dL (30.0-36.0); Mean Corpuscular Hemoglobin 25.1 pg (28.0-34.0); Mean Corpuscular Volume 86.1 fL (80-94); Mean Platelet Volume 11.5 fL (7.4-10.4); Monocytes # 1.1 10^3/uL (0.2-0.9); Monocytes % 6.5 %; Neutrophils # 13.2 10^3/uL (1.8-7.7); Neutrophils % 76.7 %; Nucleated Red Blood Cells % 0 %; Platelet Count 369 10^3/cmm (130-400); Red Blood Count 5.05 10^6/uL (4.1-5.3); Red Cell Distribution Width 15.9 % (12.1-15.1); White Blood Count 17.3 10^3/uL (4.0-10.0)
[2019-04-15 15:47] LABS: Albumin Level 3.2 g/dL (3.5-5.2); Alkaline Phosphatase 96 IU/L (40-130); Chloride 105 mmol/L (98-107); Potassium 4.4 mmol/L (3.5-5.1); Sodium 137 mmol/L (136-145)
--- NOTE | 2019-04-15 15:48 | PC.NURSE ---
pt refused a shower at this time he stated he will take one after dinner
[2019-04-15 16:01] LABS: Anion Gap 14.4 (5-19); Blood Urea Nitrogen 25 mg/dL (6-20); Calcium 9.1 mg/dL (8.5-10.5); Carbon Dioxide 22 mmol/L (22-29); Glomerular Filtration Rate 76.6 mL/min (90-130); Glucose 148 mg/dL (74-109); Total Bilirubin 0.2 mg/dL (0.15-1.2)
[2019-04-15 16:02] LABS: Alanine Aminotransferase 25 U/L (0-41); Aspartate Amino Transferase 20 U/L (0-40); Globulin 3.1 g/dL (1.3-4.6); Total Protein 6.3 g/dL (6.6-8.7)
--- NOTE | 2019-04-15 16:17 | P.PN_ITS ---
Subjective Subjective: Interval history: Patient reports feeling better this morning. Denies shortness of breath or chest pain at rest. Reports that his appetite is improving and he is eating and drinking better. He had good urinary output. He is getting to the bathroom without significant difficulty. White blood cell count increased to 17.3. This could be potentially because of steroid patient received on admission. Depending on progress Dr. Astorga considers to perform perfusion scan. Medications: Reviewed: Yes Medication Review Details: Current Medications Albuterol/Ipratropium (Duoneb) 3 ml INHALATION Q4H PRN PRN Reason: SHORTNESS OF BREATH Enoxaparin Sodium (Lovenox) 40 mg SUBCUT Q24H [facility] Last Admin: 04/15/19 03:23 Dose: 40 mg Documented by: Furosemide (Lasix) 40 mg PO DAILY@0800 [facility] Last Admin: 04/15/19 08:49 Dose: 40 mg Documented by: Ceftriaxone Sodium 1,000 mg/ (Sodium Chloride) 50 mls @ 100 mls/hr IV Q24H [facility]; Protocol Last Admin: 04/14/19 22:33 Dose: 100 mls/hr Documented by: Levofloxacin/Dextrose (Levaquin-D5w) 750 mg in 150 mls @ 150 mls/hr IV Q24H [facility]; Protocol Last Admin: 04/14/19 18:38 Dose: 150 mls/hr Documented by: Lactated Ringer's (Lactated Ringers) 1,000 mls @ 50 mls/hr IV .Q20H [facility] Last Admin: 04/14/19 18:38 Dose: 50 mls/hr Documented by: Vancomycin HCl 2,000 mg/ (Sodium Chloride) 500 mls @ 250 mls/hr IV Q12H [facility] Last Admin: 04/15/19 08:49 Dose: 250 mls/hr Documented by: Lisinopril (Prinivil) 20 mg PO 1800 NICOLE Metoprolol Tartrate (Lopressor) 25 mg PO BID [facility] Last Admin: 04/15/19 08:49 Dose: 25 mg Documented by: Nitroglycerin (Nitro-Bid) 1 inch TOPICAL Q6H [facility] Last Admin: 04/15/19 08:49 Dose: 1 inch Documented by: Ondansetron HCl (Zofran) 4 mg IVP Q6H PRN PRN Reason: NAUSEA AND VOMITING Vitals/I&O/Wt Last Vital Signs Temp 98.0 F 04/15/19 12:48 Pulse 92 04/15/19 14:55 Resp 16 04/15/19 12:48 BP 137/91 04/15/19 12:48 Pulse Ox 95 04/15/19 14:55 04/15/19 04/15/19 04/15/19 06:59 14:59 22:59 Intake Total 400 / 1980 596 / 596 850 / 1446 Output Total 675 / 2525 700 / 700 400 / 1100 Balance -275 / -545 -104 / -104 450 / 346 Weight last 48 hrs Weight 131.542 kg Physical Exam HENMT: COMMON NORMALS: normocephalic HEAD & SCALP: normocephalic Resp: OTHER: Overall improved but still coarse breath sounds throughout. No wheezing Appreciated. Cardio: COMMON NORMALS: regular rate, regular rhythm, S2 normal heart sound, no gallops, no clicks, no murmurs and no rub RATE: regular rate RHYTHM: r egular rhythm HEART SOUNDS: S2 normal GI: COMMON NORMALS: normal to inspection, nondistended, normoactive bowel sounds, soft to palpation and non-tender PALPATION: Yes soft Data : 04/15/19 15:12 04/15/19 15:12 Micro: Microbiology 04/14/19 00:30 Blood Culture - Preliminary Blood NEGATIVE TO DATE 04/14/19 00:25 Blood Culture - Preliminary Blood NEGATIVE TO DATE 04/14/19 17:43 Blood Culture - Preliminary Blood SPECIMEN COLLECTED 04/14/19 17:47 Blood Culture - Preliminary Blood SPECIMEN COLLECTED A&P Assessment and plan (1) Myocarditis: Status: Acute Code(s): I51.4 - Myocarditis, unspecified (2) CHF (congestive heart failure): Status: Acute Qualifiers: Heart failure chronicity: acute Heart failure type: unspecified Qualified Code(s): I50.9 - Heart failure, unspecified Code(s): I50.9 - Heart failure, unspecified (3) Pneumonia: Status: Acute Qualifiers: Laterality: bilateral Lung location: lower lobe of lung Pneumonia type: due to unspecified organism Qualified Code(s): J18.9 - Pneumonia, unspecified organism Code(s): J18.9 - Pneumonia, unspecified organism (4) Prolonged QT interval: Status: Acute Code(s): R94.31 - Abnormal electrocardiogram [ECG] [EKG] Additional A&P Information New onset congestive heart failure Cardiomyopathy, likely nonischemic. Patient Symptoms has been going on for at least 2 months which is somewhat prolonged for viral infection. Patient has pneumonia based on clinical exam and imaging. Non-ST elevation [place] cannot be completely ruled out. 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 No evidence of pericarditis. Discussed case with Dr. Astorga will see patient in consultation as further evaluation with coronary angiogram could be considered. U tox positive for amphetamine but patient absolutely denies IV illicit drug use. 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 Hypertension: Patient does not take any medications at home He has been hypertensive in ER, he has received 1.5 inches of nitro with morphinE We will check TSH level, lipid panel, A1c He met sepsis criteria with leukocytosis, high lactic acid and tachycardia CT chest is showing a possibility of multilobar pneumonia Continue current monitoring and treatment. Will obtain inflammatory markers And repeat troponin. We'll repeat blood culture one more time. Start patient on gentle Hydration as he is diaphoretic. Monitor urinary output. Tobacco abuse with dependence. Discussed extensively regarding importance of smoking cessation. Patient voiced understanding. 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
[2019-04-15] MEDS: levofloxacin-dextrose 5 % 750 MG/150 ML PREMIX 150 MG IV (17:28)
[2019-04-15] MEDS: lisinopril 10 mg Tablet 20 MG PO (17:28)
[2019-04-15 20:51] LABS: Vancomycin Trough 13.2 ug/mL (10-15)
[2019-04-15] MEDS: cefTRIAXone 1,000 MG in sodium chloride 0.9% (plus) 50 ML 100 MG IV (23:55)
[2019-04-16] VITALS (7 sets, daily range): BP systolic 109–140; BP diastolic 80–91; PULSE 78–100; RESP 18–27; TEMP 36.5–36.7; O2SAT 93–98
[2019-04-16] MEDS: morphine 4 mg/mL SDV 1 mL 1 MG IVP (00:11)
[2019-04-16] MEDS: nitroglycerin 1 gm/inch oint Pkt 1 INCH TOPICAL (03:48)
[2019-04-16] MEDS: enoxaparin 40 mg/0.4 mL Syringe SUBCUT (03:48)
[2019-04-16 03:50] LABS: Basophils # 0.1 10^3/uL (0.0-0.1); Basophils % 0.4 %; Eosinophils # 0.2 10^3/uL (0.0-0.8); Eosinophils % 1.6 %; Hematocrit 43.3 % (42.0-52.0); Hemoglobin 13.1 g/dL (11.7-16.6); Lymphocytes # 3.7 10^3/uL (0.8-4.8); Lymphocytes % 25.6 %; Mean Corpuscular HGB Conc 30.3 g/dL (30.0-36.0); Mean Corpuscular Hemoglobin 25.4 pg (28.0-34.0); Mean Corpuscular Volume 84.1 fL (80-94); Mean Platelet Volume 11.4 fL (7.4-10.4); Monocytes % 7.1 %; Neutrophils # 9.3 10^3/uL (1.8-7.7); Neutrophils % 64.7 %; Nucleated Red Blood Cells % 0 %; Platelet Count 430 10^3/cmm (130-400); Red Blood Count 5.15 10^6/uL (4.1-5.3); Red Cell Distribution Width 15.8 % (12.1-15.1); White Blood Count 14.4 10^3/uL (4.0-10.0)
[2019-04-16 03:52] LABS: Alanine Aminotransferase 24 U/L (0-41); Albumin Level 3.1 g/dL (3.5-5.2); Alkaline Phosphatase 86 IU/L (40-130); Anion Gap 16.4 (5-19); Aspartate Amino Transferase 17 U/L (0-40); Blood Urea Nitrogen 22 mg/dL (6-20); Calcium 8.9 mg/dL (8.5-10.5); Carbon Dioxide 22 mmol/L (22-29); Chloride 106 mmol/L (98-107); Globulin 3.1 g/dL (1.3-4.6); Glomerular Filtration Rate 96.6 mL/min (90-130); Glucose 119 mg/dL (74-109); Potassium 4.4 mmol/L (3.5-5.1); Sodium 140 mmol/L (136-145); Total Bilirubin 0.2 mg/dL (0.15-1.2); Total Protein 6.2 g/dL (6.6-8.7)
--- NOTE | 2019-04-16 05:48 | PC.NURSE ---
PT C/O PAIN AT THIS TIME 6/10. DOCTOR GIVE A ONE TIME ORDER FOR 1MG OF MORPHINE IVP. TRACE EVIDENCE TECHNICIAN NURSE ADMINISTERED PUSH. PAIN LEVEL CAME DOWN TO 4/10. WILL CONTINUE TO MONITOR.
[2019-04-16] MEDS: FUROsemide 20 mg Tablet 40 MG PO (07:53)
[2019-04-16] MEDS: metoprolol tartrate 25 mg Tablet PO (08:44)
--- NOTE | 2019-04-16 09:43 | PM.PN ---
Subjective Subjective: Interval history: Patient is feeling better. No chest pain or shortness of breath. Still having some cough no other specific complaints Medications: Reviewed: Yes Medication Review Details: Current Medications Albuterol/Ipratropium (Duoneb) 3 ml INHALATION Q4H PRN PRN Reason: SHORTNESS OF BREATH Enoxaparin Sodium (Lovenox) 40 mg SUBCUT Q24H [facility] Last Admin: 04/16/19 03:48 Dose: 40 mg Documented by: Furosemide (Lasix) 40 mg PO DAILY@0800 [facility] Last Admin: 04/16/19 07:53 Dose: 40 mg Documented by: Ceftriaxone Sodium 1,000 mg/ (Sodium Chloride) 50 mls @ 100 mls/hr IV Q24H [facility]; Protocol Last Infusion: 04/16/19 00:25 Dose: Infused Documented by: Levofloxacin/Dextrose (Levaquin-D5w) 750 mg in 150 mls @ 150 mls/hr IV Q24H [facility]; Protocol Last Admin: 04/15/19 17:28 Dose: 150 mls/hr Documented by: Vancomycin HCl 2,000 mg/ (Sodium Chloride) 500 mls @ 250 mls/hr IV Q12H [facility] Last Admin: 04/16/19 08:55 Dose: 250 mls/hr Documented by: Lisinopril (Prinivil) 20 mg PO 1800 [facility] Last Admin: 04/15/19 17:28 Dose: 20 mg Documented by: Metoprolol Tartrate (Lopressor) 25 mg PO BID [facility] Last Admin: 04/16/19 08:44 Dose: 25 mg Documented by: Nitroglycerin (Nitro-Bid) 1 inch TOPICAL Q6H [facility] Last Admin: 04/16/19 09:02 Dose: Not Given Documented by: Ondansetron HCl (Zofran) 4 mg IVP Q6H PRN PRN Reason: NAUSEA AND VOMITING Vitals/I&O/Wt Last Vital Signs Temp 98.0 F 04/16/19 06:26 Pulse 78 04/16/19 08:46 Resp 18 04/16/19 08:46 BP 126/90 04/16/19 06:26 Pulse Ox 96 04/16/19 08:46 04/15/19 04/16/19 04/16/19 22:59 06:59 14:59 Intake Total 1090 / 2186 1520 / 3706 720 / 720 Output Total 875 / 1575 1050 / 2625 Balance 215 / 611 470 / 1081 720 / 720 Physical Exam Narrative: EXAM NARRATIVE: GENERAL: Not in any acute distress. Appears sleepy HEENT: No significant pallor, icterus or lymphadenopathy.Oral cavity: There are no mucous membrane lesions. NECK: Trachea appears to be central. No masses noted. No JVD or thyromegaly appreciated. RESPIRATORY: Chest is symmetrical. No intercostals muscle retraction or any accessory muscle activation. There is no chest wall tenderness. Breath sounds are heard bilaterally. Occasional coarse crackles. No evidence of any consolidation. BREASTS: Deferred. HEART: The heart sounds are normal. No S3 or S4. Murmurs. No pericardial rub ABDOMEN: No vessel pulsations or distention. No tenderness. No organomegaly appreciated. Bowel sounds are normally heard. : Deferred. RECTAL: Deferred. LYMPHATIC: No lymphadenopathy noted in the neck or groin. EXTREMITIES: No edema or cyanosis. No clubbing. Peripheral pulses are palpated in fairly good volume and amplitude MUSCULOSKELETAL: No acute joint deformities or swelling SKIN: There are no significant scars or skin rash noted. NEUROPSYCHIATRIC: The patient is alert and oriented x3. Appears to be in a good mood. No tremors or rigidity noted. Data : 04/16/19 03:05 04/16/19 03:05 Other Labs: Abnormal lab results 04/15/19 04/15/19 04/16/19 Range/Units 15:12 15:12 03:05 WBC 17.3 H 14.4 H (4.0-10.0) 10^3/uL MCH 25.1 L 25.4 L (28.0-34.0) pg MCHC 29.2 L (30.0-36.0) g/dL RDW 15.9 H 15.8 H (12.1-15.1) % Plt Count 430 H (130-400) 10^3/cmm MPV 11.5 H 11.4 H (7.4-10.4) fL Neut # (Auto) 13.2 H 9.3 H (1.8-7.7) 10^3/uL [place] # (Auto) 1.1 H 1.0 H (0.2-0.9) 10^3/uL BUN 25 H (6-20) mg/dL GFR Calculation 76.6 L (90-130) mL/min Glucose 148 H (74-109) mg/dL Total Protein 6.3 L (6.6-8.7) g/dL Albumin 3.2 L (3.5-5.2) g/dL 04/16/19 Range/Units 03:05 WBC (4.0-10.0) 10^3/uL MCH (28.0-34.0) pg MCHC (30.0-36.0) g/dL RDW (12.1-15.1) % Plt Count (130-400) 10^3/cmm MPV (7.4-10.4) fL Neut # (Auto) (1.8-7.7) 10^3/uL [place] # (Auto) (0.2-0.9) 10^3/uL BUN 22 H (6-20) mg/dL GFR Calculation (90-130) mL/min Glucose 119 H (74-109) mg/dL Total Protein 6.2 L (6.6-8.7) g/dL Albumin 3.1 L (3.5-5.2) g/dL Micro: Microbiology 04/14/19 17:43 Blood Culture - Preliminary Blood NEGATIVE TO DATE 04/14/19 17:47 Blood Culture - Preliminary Blood NEGATIVE TO DATE A&P Assessment and plan (1) Cardiomyopathy: Patient has no clinical evidence of any decompensation. Seems to be tolerating medication so far well. Since the blood pressure is high and also in view of the cardiomyopathy, he may be started on carvedilol 12.5 mg p.o. twice daily. The metoprolol may be discontinued. Status: Acute Qualifiers: Cardiomyopathy type: other Qualified Code(s): I42.8 - Other cardiomyopathies Code(s): I42.9 - Cardiomyopathy, unspecified (2) Sinus tachycardia: This is multifactorial but seems to be getting better. Medication change as mentioned above Status: Acute Code(s): R00.0 - Tachycardia, unspecified (3) Prolonged QT interval: Consider doing a myocardial perfusion imaging as an outpatient at the office visit Status: Acute Code(s): R94.31 - Abnormal electrocardiogram [ECG] [EKG] (4) CHF (congestive heart failure): May continue on the current dose of Lasix. Based on the clinical progress, further recommendations will be made. Because of his relative hyperkalemia, may hold off on the spironolactone Status: Acute Qualifiers: Heart failure chronicity: acute Heart failure type: unspecified Qualified Code(s): I50.9 - Heart failure, unspecified Code(s): I50.9 - Heart failure, unspecified (5) Elevated troponin: Troponin T level is stable or slightly trending down. Most likely related to myocarditis. May continue on the current measures. Myocardial perfusion imaging as an outpatient as mentioned above. Status: Acute Code(s): R79.89 - Other specified abnormal findings of blood chemistry Additional A&P Information Discussed with Dr. Loza about the treatment plan Attestations Medical Necessity Statement*: Possible discharge home today. Appointment to be seen in the [facility] in 1 week by the nurse practitioner. 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
--- NOTE | 2019-04-16 11:10 | ECG_ITS ---
Measurements Intervals [place] Rate: 87 P: 70 MT: 150 QRS: -23 QRSD: 116 T: -14 QT: 383 QTc: 462 SINUS RHYTHM LEFT ATRIAL ENLARGEMENT [-0.15mV P WAVE IN V1/V2] SEPTAL MYOCARDIAL INFARCTION [40+ ms Q WAVE IN V1/V2], PROBABLY OLD Compared to ECG 04/14/2019 05:18:40 Myocardial infarct finding now present Sinus tachycardia no longer present Left-axis deviation no longer present T-wave abnormality no longer present Electronically Signed On 04-16-2019 20:17:20 KNURLING MACHINE TENDER by Kendra Farrar M.D. [email or web address]
--- NOTE | 2019-04-16 11:36 | PC.NURSE ---
Patient refusing telemetry at this time, patient states he said I was going home this nurse reported to patient that no discharge orders have been placed at this time. Patient stated I dont care I am going home today regardless if i have orders or not spoke with patient about AMA and the risks of leaving the hospital too early, patient verbalized understanding and reports that he does not care.
--- NOTE | 2019-04-16 14:01 | PM.DCS ---
Discharge Providers Date of Admission: 04/14/19 01:59 Date of Discharge: Date of Discharge: April 16, 2019 Attending Provider at Admission: Kendra Varma MD Attending Provider at Discharge: Dinesh Loza MD Primary Care Provider: Abdoulaye Mccarty DO Diagnoses at Discharge Discharge Diagnosis (1) Cardiomyopathy: Status: Acute Qualifiers: Cardiomyopathy type: other Qualified Code(s): I42.8 - Other cardiomyopathies (2) Sinus tachycardia: Status: Acute (3) Prolonged QT interval: Status: Acute (4) CHF (congestive heart failure): Status: Acute Qualifiers: Heart failure chronicity: acute Heart failure type: unspecified Qualified Code(s): I50.9 - Heart failure, unspecified (5) Elevated troponin: Status: Acute Reason for Visit Reason for Visit: Reason For Visit: COUGH Hospital Course Discharge Summary: Patient presents with shortness of breath gradually worsening over the last 2 months. He has been having fever chills and cough and was found to have diffuse pneumonia and cardiomyopathy with EF 40%. He had elevated troponin and infection and/or amphetamine induced myocarditis was considered. Patient denied IV drug use and reports only smoking methamphetamines. He has been treated with antibiotics as well as diuretics and gradually improved and this morning reports feeling much better and wants to go home. He is white blood cell count is trending down. He reports that he is able to ambulate in the hallway and his appetite is improving. I have discussed with Dr. Astorga and we will go ahead and switch patient to Coreg and continue Lasix at this point only without initiation of potassium or spironolactone due to potassium being on the higher side. We will obtain lab work prior to cardiology nurse positioner Ivette Ernst follow-up in [address] Astorga will see patient in 3 weeks. Patient does not have primary care physician and we have discussed regarding importance to arranging outpatient follow-up. We will request to set patient up with PCP. We have discussed for patient to come back immediately if he is not feeling better and patient voiced understanding. EKG this morning was repeated showing improvement in QTc interval. Patient will be continued on Levaquin only for 10 more days. His lung exam this morning significantly better. Patient has overall decreased air movement but clear otherwise. I had extensive discussion with patient regarding importance of smoking cessation. Patient voiced understanding and reports that he will try. He does not want any pharmacological help. Physical Exam Const: COMMON NORMALS: no apparent distress and oriented x3 Resp: COMMON NORMALS: normal respiratory effort and clear to auscultation bilaterally AUSCULTATION: clear to auscultation bilaterally Cardio: COMMON NORMALS: regular rate, regular rhythm and S2 normal heart sound RATE: regular rate RHYTHM: regular rhythm HEART SOUNDS: S2 normal OTHER: No lower extremity edema GI: COMMON NORMALS: normal to inspection, nondistended, normoactive bowel sounds, soft to palpation and non-tender PALPATION: Yes soft Neuro: COMMON NORMALS: oriented x3 and no focal motor deficits Discharge Data Data Completed and Pending: Completed Studies During Hospitalization Category Date Time Status CT angio chest PE protcl 23193 Urge nt Cat Scan 04/14/19 00:27 Completed XR chest 1V chata ble [id number] Stat Exams 04/13/19 22:05 Completed CV echo complete* [id number] Routine Ultrasound 04/14/19 03:03 Completed Pending at discharge Category Date Time Status Blood Culture Sta t Lab 04/14/19 00:30 Results Blood Culture Sta t Lab 04/14/19 17:43 Results Sputum Culture an d Gram Stain Wilfredoi ne Lab 04/14/19 17:53 Uncollected Labs from last 24 hours 04/16/19 04/16/19 04/15/19 03:05 03:05 20:33 WBC 14.4 H RBC 5.15 Hgb 13.1 Hct 43.3 MCV 84.1 MCH 25.4 L MCHC 30.3 RDW 15.8 H Plt Count 430 H MPV 11.4 H Neut % (Auto) 64.7 Lymph % (Auto) 25.6 Brown % (Auto) 7.1 Eos % (Auto) 1.6 Baso % (Auto) 0.4 Neut # (Auto) 9.3 H Lymph # (Auto) 3.7 Brown # (Auto) 1.0 H Eos # (Auto) 0.2 Baso # (Auto) 0.1 Nucleated RBC % (a uto) 0 Nucleated RBCs # 0.0 Sodium 140 Potassium 4.4 Chloride 106 Carbon Dioxide 22 Anion Gap 16.4 BUN 22 H Creatinine 0.9 GFR Calculation 96.6 Glucose 119 H Calcium 8.9 Total Bilirubin 0.2 AST 17 ALT 24 Alkaline Phosphata se 86 Total Protein 6.2 L Albumin 3.1 L Globulin 3.1 Vancomycin Trough 13.2 04/15/19 04/15/19 15:12 15:12 WBC 17.3 H RBC 5.05 Hgb 12.7 Hct 43.5 MCV 86.1 MCH 25.1 L MCHC 29.2 L RDW 15.9 H Plt Count 369 MPV 11.5 H Neut % (Auto) 76.7 Lymph % (Auto) 15.6 Brown % (Auto) 6.5 Eos % (Auto) 0.5 Baso % (Auto) 0.2 Neut # (Auto) 13.2 H Lymph # (Auto) 2.7 [place] # (Auto) 1.1 H Eos # (Auto) 0.1 Baso # (Auto) 0.0 Nucleated RBC % (a uto) 0 Nucleated RBCs # 0.0 Sodium 137 Potassium 4.4 Chloride 105 Carbon Dioxide 22 Anion Gap 14.4 BUN 25 H Creatinine 1.1 GFR Calculation 76.6 L Glucose 148 H Calcium 9.1 Total Bilirubin 0.2 AST 20 ALT 25 Alkaline Phosphata se 96 Total Protein 6.3 L Albumin 3.2 L Globulin 3.1 Vancomycin Trough Vitals: Last Vital Signs Temp 98.0 F 04/16/19 10:00 Pulse 93 04/16/19 10:00 Resp 18 04/16/19 10:00 BP 140/83 04/16/19 10:00 Pulse Ox 93 04/16/19 10:00 Discharge Plan Discharge Patient Disposition: Home, Self-Care Condition: Stable Prescriptions: New lisinopril 10 mg Tablet 20 mg PO 1800 Qty: 30 RF: 0 acetaminophen 325 mg Tablet 650 mg PO Q4H PRN (Reason: Mild Pain Or Increase Temp) Qty: 30 RF: 0 furosemide [Lasix] 20 mg tablet 20 mg PO DAILY Qty: 30 RF: 0 levofloxacin [Levaquin] 750 mg tablet 750 mg PO DAILY 10 Days Qty: 10 RF: 0 carvedilol [Coreg] 12.5 mg tablet 12.5 mg PO BID Qty: 60 RF: 0 aspirin [Adult Low Dose Aspirin] 81 mg tablet,delayed release (DR/EC) 81 mg PO DAILY Qty: 30 RF: 0 No Action No Known Home Medications RF: 0 Referrals: Renetta Astorga MD [Physician] - 05/07/19 Abdoulaye Mccarty DO [Primary Care Provider] - Ivette Vaca FNP [Nurse Practitioner] - 1 week (Patient to have CMP, CBC and magnesium level right prior to follow-up.) Discharge Diet: Advance as tolerated Discharge Activity: Limit activity as instructed Activity Restrictions/Additional Instructions: Please call your doctor or present to emergency department if your condition worsens or you develop diarrhea, lightheadedness, fatigue or see blood in your stool or black stool. Please keep blood pressure and heart rate log 3 times daily to present to primary care physician and Dr. Astorga for medication adjustment. Please limit activities and avoid strenuous exercise until you follow-up with Dr. Astorga in 3 weeks and told otherwise. 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
--- NOTE | 2019-04-16 14:20 | XR_ITS ---
WS: [id number] CHEST XRAY TECHNIQUE: Portable chest. CLINICAL INFORMATION: PNEUMONIA COMPARISON: April 13, 2019 FINDINGS: Heart: Cardiomegaly. Lungs: Previously described bibasal infiltrates appear improved since April 13, 2019. No new pulmo nary infiltrates. Bones: Normal visualized bony structures. XR/XR chest 1V [id number] IMPRESSION: 1. Stable cardiomegaly. 2. Bilateral lower lobe infiltrates appear improved from previous.
[2019-04-16] MEDS: carvedilol 6.25 mg Tablet PO (15:09)
--- NOTE | 2019-04-16 15:42 | PC.NURSE ---
Attempted to establish an PCP for patient with Arthur García. He is to call Arthur García to set up follow-up appointment with a week.
--- NOTE | 2019-04-16 15:49 | PC.NURSE ---
Patient discharged home at this time, discharge instructions given and explained, patient was not receptive to learning patient very anxious and ready to go home copy of discharge instructions sent with patients mother patient ambulatory to exit accompanied by family and staff.
--- NOTE | 2019-04-16 16:29 | PC.NURSE ---
Upon cleaning room after patient discharge the remote control was found in pieces with only a few parts located; the rubber buttons, one battery and the battery cover was found unknown to this nurse where the other parts of the remote may have ended up.
== END 2019-04-16 15:48 | disposition home or self-care (01) | DRG 314 ==
LOC: ER 04-14 01:37 → CSU 04-14 02:27
PROVIDERS: Internal Medicine Cardiovascular Disease; Nurse Practitioner Family; Admitting Provider Internal Medicine; Emergency Provider Emergency Medicine; Family Provider Family Medicine; PCP Family Medicine; Visit Provider Internal Medicine
DX: I42.7 Cardiomyopathy due to drug and external agent (principal); J18.9 Pneumonia, unspecified organism; I51.4 Myocarditis, unspecified; I42.8 Other cardiomyopathies; I50.9 Heart failure, unspecified; R00.0 Tachycardia, unspecified; R94.31 Abnormal electrocardiogram [ECG] [EKG]; F15.90 Other stimulant use, unspecified, uncomplicated; F17.210 Nicotine dependence, cigarettes, uncomplicated; Z79.82 Long term (current) use of aspirin; Z79.899 Other long term (current) drug therapy
CPT/HCPCS: 12345; 36415; 71045; 71275; 80048; 80053; 80061; 80202; 80307; 83036; 83605; 83735; 83880; 84443; 84484; 85025; 85378; 85651; 86140; 87040; 87804; 93005; 93306; 94640; 96360; 96361; 96365; 96366; 96372; 96374; 96375; 99283; J0696; J1100; J1650; J1940; J1956; J2270; J3370; J3535; J7030; J7040; Q0144; Q9967

== ENCOUNTER → 2019-04-23 12:35 | Outpatient (BNVA) | payer SELFPAY | PROVIDERS: Family Provider Family Medicine; PCP Family Medicine; Visit Provider Nurse Practitioner Family | DX: I50.20 Unspecified systolic (congestive) heart failure (principal); I42.9 Cardiomyopathy, unspecified; I51.4 Myocarditis, unspecified; J18.9 Pneumonia, unspecified organism | CPT/HCPCS: 80053; 83735; 85025 ==

== ENCOUNTER 2019-05-30 10:38 | Outpatient (CLI) | payer SELFPAY ==
--- NOTE | 2019-05-30 10:43 | XR_ITS ---
WS: [id number] XR chest 2V* [id number] REASON FOR EXAM: Cough FINDINGS: Cardiomegaly is noted. The peripheral lungs are well aerated. No pneumonia, pleural effusio n, pulmonary edema, pneumothorax, or mass effect. The hilum and apices are normal. No osseous abnormalities. XR/XR chest 2V* [id number] IMPRESSION: Cardiomegaly.
[2019-05-30 11:34] LABS: Basophils # 0.1 10^3/uL (0.0-0.1); Basophils % 0.7 %; Eosinophils # 0.4 10^3/uL (0.0-0.8); Lymphocytes # 2.7 10^3/uL (0.8-4.8); Lymphocytes % 22.5 %; Mean Corpuscular HGB Conc 29.2 g/dL (30.0-36.0); Mean Corpuscular Hemoglobin 25.5 pg (28.0-34.0); Mean Corpuscular Volume 87.3 fL (80-94); Mean Platelet Volume 10.9 fL (7.4-10.4); Monocytes # 0.7 10^3/uL (0.2-0.9); Monocytes % 5.8 %; Neutrophils % 67.6 %; Nucleated Red Blood Cells % 0 %; Platelet Count 317 10^3/cmm (130-400); Red Cell Distribution Width 17.2 % (12.1-15.1); White Blood Count 11.9 10^3/uL (4.0-10.0)
[2019-05-30 11:47] LABS: Troponin T (5th) Once 32 ng/mL (0-15)
[2019-05-30 11:56] LABS: Anion Gap 16.5 (5-19); Blood Urea Nitrogen 23 mg/dL (6-20); Calcium 9.9 mg/dL (8.5-10.5); Carbon Dioxide 25 mmol/L (22-29); Chloride 104 mmol/L (98-107); Glomerular Filtration Rate 76.6 mL/min (90-130); Glucose 101 mg/dL (65-115); NT Pro B Type Natriuretic Pept 4773 pg/mL (0-125); Osmolality Calculated 289 mOsm/kg (285-295); Potassium 4.5 mmol/L (3.5-5.1); Sodium 141 mmol/L (136-145)
== END 2019-05-30 10:39 | disposition home or self-care (01) ==
LOC: RAD 10:41
PROVIDERS: Family Provider Family Medicine; Visit Provider Internal Medicine Cardiovascular Disease
DX: I51.7 Cardiomegaly (principal); I50.33 Acute on chronic diastolic (congestive) heart failure; I51.4 Myocarditis, unspecified; R06.02 Shortness of breath; R05 Cough; Z79.01 Long term (current) use of anticoagulants
CPT/HCPCS: 71046; 80048; 83880; 84484; 85025

== ENCOUNTER → 2019-09-16 15:20 | Outpatient (BNVA) | payer SELFPAY | PROVIDERS: Family Provider Family Medicine; Visit Provider Internal Medicine Cardiovascular Disease | DX: I40.1 Isolated myocarditis (principal); R06.02 Shortness of breath; I50.33 Acute on chronic diastolic (congestive) heart failure; I42.8 Other cardiomyopathies; I50.9 Heart failure, unspecified; M79.89 Other specified soft tissue disorders | CPT/HCPCS: 80048; 83880; 85651 ==

== ENCOUNTER → 2020-01-16 11:28 | Outpatient (BNVA) | payer SELFPAY | PROVIDERS: Family Provider Family Medicine; Visit Provider Internal Medicine Cardiovascular Disease | DX: I40.1 Isolated myocarditis (principal); R06.02 Shortness of breath; I50.33 Acute on chronic diastolic (congestive) heart failure; I50.9 Heart failure, unspecified; R07.89 Other chest pain; I42.8 Other cardiomyopathies | CPT/HCPCS: 80048; 83880 ==

== ENCOUNTER → 2020-09-07 11:10 | Outpatient (BNVA) | payer SELFPAY | PROVIDERS: Family Provider Family Medicine; Visit Provider Internal Medicine Cardiovascular Disease | DX: I40.1 Isolated myocarditis (principal); R06.02 Shortness of breath; I50.33 Acute on chronic diastolic (congestive) heart failure; I50.9 Heart failure, unspecified; R07.89 Other chest pain; I42.8 Other cardiomyopathies; I31.3 Pericardial effusion (noninflammatory) | CPT/HCPCS: 80048; 83880; 84484 ==

== ENCOUNTER 2020-10-16 07:23 | Outpatient (CLI) | payer SELFPAY ==
--- NOTE | 2020-10-16 08:00 | USCV_ITS ---
Aubrey Astorga Age: 35 Gender: M : 1985 Exam Date: 10/16/2020 07:42 Ordering Phys: Renetta Astorga MD ([email or web address]) Technologist: Suzanne Talley Exam Location: [facility] – [place] Indication: PERICARDIAL EFFUSION BP: / HR: 82 Rhythm: Sinus Technical Quality: Adequate MEASUREMENTS (Male / Female) Normal Values 2D ECHO LV Diastolic Diameter PLAX 4.0 cm 4.2 - 5.9 / 3.9 - 5.3 cm LV Systolic Diameter PLAX 3.6 cm LV Chamber Size 4.7 cm IVS Diastolic Thickness 1.6 cm 0.6 - 1.0 / 0.6 - 0.9 cm IVS Systolic Thickness 1.6 cm LVPW Diastolic Thickness 1.8 cm 0.6 - 1.0 / 0.6 - 0.9 cm LVPW Systolic Thickness 1.9 cm RV Chamber Size 3.5 cm LVOT Diameter 2.1 cm LV Ejection Fraction 2D Teich 24.3 % LV Ejection Fraction MOD 2C 41.9 % LV Ejection Fraction 2C AL 45.3 % LA Diameter 4.0 cm LA Width 3.3 cm LA Height 5.1 cm RA Width 3.0 cm RA Height 4.1 cm Aorta at Sinotubular Diameter 3.5 cm M-MODE LV Diastolic Diameter MM 5.3 cm 4.2 - 5.9 / 3.9 - 5.3 cm LV Systolic Diameter MM 3.4 cm LV Ejection Fraction MM Teich 63.9 % IVS Diastolic Thickness MM 1.0 cm 0.6 - 1.0 / 0.6 - 0.9 cm IVS Systolic Thickness MM 1.3 cm LVPW Diastolic Thickness MM 1.2 cm 0.6 - 1.0 / 0.6 - 0.9 cm LVPW Systolic Thickness MM 2.1 cm Aortic Annulus Diameter 3.6 cm LA Ao Ratio MM 1.4 FINDINGS Left Ventricle Technically limited quality study because of poor ultrasonic windows. Grossly LV systolic function is mildly decreased with EF of 40%. Regional wall motion can not be assessed accurately because of poor visualization Right Ventricle Grossly normal Right Atrium Normal size Left Atrium Grossly normal size Mitral Valve Thickened Aortic Valve Not well visualized Tricuspid Valve Grossly normal Pulmonic Valve Not visualized Pericardium Grossly normal. Small pericardial effusion is noted. Aorta Normal-sized CONCLUSIONS Technically limited quality study because of poor ultrasonic windows. Grossly LV systolic function is mildly decreased with EF of 40%. Small sized pericardial effusion is noted. Compared to prior echocardiogram from 04/2019, no significant change is noted Bay Vizcarra MD (Electronically Signed) Final Date: 17 October 2020 22:22 S
== END 2020-10-16 07:24 | disposition home or self-care (01) ==
PROVIDERS: Visit Provider Internal Medicine Cardiovascular Disease
DX: I31.3 Pericardial effusion (noninflammatory) (principal); I42.8 Other cardiomyopathies
CPT/HCPCS: 93308

== ENCOUNTER 2020-12-23 03:38 | Emergency (ER) | payer SELFPAY ==
[2020-12-23 03:43] VITALS: BP 162/115; PULSE 106; RESP 18; TEMP 36.7; O2SAT 96; BMI 42.5
--- NOTE | 2020-12-23 03:46 | W.ED.EAR ---
HPI - Ear Problem General: Chief complaint: Ear Stated complaint: L ear bug Crawled in Time Seen by Provider: 12/23/20 03:39 Source: patient Mode of arrival: ambulatory Limitations: no limitations History of Present Illness: HPI Narrative: 35-year-old male who states that he woke up this morning with a foreign body sensation in his left ear he believes that a insect and called in his left ear. He states that on his way here he actually felt like the bug is removed and he is no longer having any symptoms. Denies any pain. Denies any worsening improving factors. Associated symptoms: Denies fever(s), headache(s) or neck pain Review of Systems Const: Denies: fever(s), chills, body aches or change in appetite Eyes: Denies: blurry vision or eye discomfort ENMT: Denies: throat pain or dental pain Card: Denies: chest pain Resp: Denies: dyspnea GI: Denies: abdominal pain, nausea, vomiting or diarrhea : Denies: dysuria Musc: Denies: neck pain or back pain Skin/Breast: Denies: rash Neuro: Denies: headache(s) Psych: Denies: depression Jd/Lymph: Denies: easy bruising All/Imm: Denies: urticaria PFSH ED PFSH: Medical History (Updated 12/23/20 @ 03:47 by Patience Chavez MD) Benign essential hypertension with target blood pressure below 140/90 Cough Dental abscess Kidney stones Laceration of index finger without complication Leg swelling No pertinent past medical history Surgical History No pertinent past surgical history Family History Mother CAD (coronary artery disease) Diabetes Hyperlipidemia Hypertension Grandmother Cancer Dementia Grandfather Lung disease Denies family history of Clotting disorder Psychiatric illness Chronic kidney disease (CKD) Suicide Anesthesia complication Bleeding disorder Family history of premature coronary artery disease Stroke Social History Smoking and tobacco status: current every day smoker cigarettes Packs smoked per day: 1 Alcohol intake: former Lives independently: Yes Household members: significant other 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 Physical Exam Const: COMMON NORMALS: no acute distress and patient oriented x3 HENMT: COMMON NORMALS: normocephalic HEAD & SCALP: normocephalic OTHER: TMs normal bilaterally no foreign bodies noted in bilateral canals no signs of infection Eye: COMMON NORMALS: Equal, round and reactive pupils present PUPIL: Yes Equal, round and reactive pupils present Neck/C-Spine: COMMON NORMALS: supple Chest: COMMONS NORMALS: normal inspection of the chest Resp: COMMON NORMALS: normal respiratory effort Cardio: COMMON NORMALS: regular rate RATE: regular rate GI: INSPECTION: Yes normal to inspection Extremity: COMMON NORMALS: normal to inspection Neuro: COMMON NORMALS: patient oriented x3 Psych: COMMON NORMALS: mental status grossly normal Skin: COMMON NORMALS: no rashes or lesions noted GENERAL SKIN EXAM: no rashes or lesions noted Course Vital Signs: Vital signs: Vital Signs Temperature 98.1 F 12/23/20 03:43 Pulse Rate 106 H 12/23/20 03:43 Respiratory Rate 18 12/23/20 03:43 Blood Pressure 162/115 12/23/20 03:43 Pulse Oximetry 96 12/23/20 03:43 MDM - Ear MDM Narrative: Medical decision making narrative: Patient presents here with a likely insect in his left ear that is since crawled out. On exam here he has no foreign body noted in his canal and no signs of infection. Patient stable for discharge and return if worsening. Discharge Plan Discharge Patient Disposition: Home Clinical Impression: Otalgia of left ear Condition: Stable Prescriptions: No Action albuterol sulfate 90 mcg/actuation aero powdr breath act w/sensor 180 mcg INHALATION Q6H PRNRF: 0 Entresto 24-26 mg tablet 1 tab PO BID Qty: 180 RF: 3 lisinopril 40 mg tablet 40 mg PO DAILY Qty: 30 RF: 0 metoprolol succinate 25 mg tablet extended release 24 hr 25 mg PO DAILY Qty: 90 RF: 3 acetaminophen 325 mg Tablet 650 mg PO Q4H PRN (Reason: Mild Pain Or Increase Temp) Qty: 30 RF: 0 Adult Low Dose Aspirin 81 mg tablet,delayed release (DR/EC) 81 mg PO DAILY Qty: 30 RF: 0 Discharge Orders: Discharge ED (Routine); Ordered 12/23/20 Ordered By: Patience Chavez Discharge Diet: Advance as tolerated Discharge Activity: Resume usual activity Patient Instructions: Ear Pain - Adult Coding Level of Care Code ED Disulfurizer Tender for Jose Zamudio
== END 2020-12-23 03:51 | disposition home or self-care (01) ==
PROVIDERS: Emergency Provider Emergency Medicine
DX: H92.02 Otalgia, left ear (principal); Z79.82 Long term (current) use of aspirin; I10 Essential (primary) hypertension; F17.210 Nicotine dependence, cigarettes, uncomplicated
CPT/HCPCS: 99281

== ENCOUNTER 2022-06-22 18:15 | Emergency (ER) | payer SELFPAY ==
[2022-06-22 18:36] VITALS: BP 155/94; PULSE 91; RESP 16; TEMP 36.8; O2SAT 98; BMI 37.7
--- NOTE | 2022-06-22 19:02 | W.ED.WOUNDLC ---
HPI - Wound/Laceration General: Chief Complaint: Wound/Laceration Stated Complaint: left hand lac Time Seen by Provider: 06/22/22 19:00 History of Present Illness: Patient is a 36-year-old male comes to the ED with laceration to left hand. Injury occurred just prior to arrival. Patient was cutting some carpet with a steel box toe inserter and accidentally caused laceration to dorsal aspect of left hand near her thumb. He was able to get bleeding controlled using pressure bandage. Denies any other injuries or trauma. He has full range of motion in fingers and thumb. Patient up-to-date on tetanus. Associated symptoms: Denies chills, fever(s), nausea or vomiting Review of Systems Const: Denies: fever(s), chills or fatigue Eyes: Denies: change in vision or eye discomfort ENMT: Denies: throat pain, odynophagia, nasal discharge or nasal congestion Card: Denies: chest pain, palpitations, edema, swelling of feet/ankles, dyspnea on exertion or orthopnea Resp: Denies: dyspnea, productive cough or non-productive cough GI: Denies: abdominal pain, nausea, vomiting, diarrhea, constipation or hematochezia : Denies: flank pain, difficulty urinating, dysuria or hematuria Musc: Denies: neck pain, back pain or extremity swelling Skin/Breast: Reports: new lesions (Laceration to the left hand); Denies: rash Neuro: Denies: headache(s), numbness in extremities or weakness in extremities PFS ED PFSH: Medical History Benign essential hypertension with target blood pressure below 140/90 Cough Dental abscess Kidney stones Laceration of index finger without complication Leg swelling No pertinent past medical history Surgical History No pertinent past surgical history Family History Mother CAD (coronary artery disease) Diabetes Hyperlipidemia Hypertension Grandmother Cancer Dementia Grandfather Lung disease Denies family history of Clotting disorder Psychiatric illness Chronic kidney disease (CKD) Suicide Anesthesia complication Bleeding disorder Family history of premature coronary artery disease Stroke Social History Smoking and tobacco status: current every day smoker cigarettes Packs smoked per day: 1 Alcohol intake: former Lives independently: Yes Household members: significant other Current occupation: [employer] Physical Exam Const: COMMON NORMALS: no acute distress, patient oriented x3 and alert HENMT: COMMON NORMALS: normocephalic HEAD & SCALP: normocephalic MOUTH: Normal oral and palatal mucosa present THROAT: posterior oropharynx normal and uvula midline Neck/C-Spine: COMMON NORMALS: supple GENERAL: Yes normal visual inspection Resp: COMMON NORMALS: normal respiratory effort, No retractions, No use of accessory muscles and clear to auscultation bilaterally AUSCULTATION: clear to auscultation bilaterally Cardio: COMMON NORMALS: regular rate, regular rhythm, S1 normal heart sound present, S2 normal heart sound present, No gallops present (Cardio), No clicks present (Cardio), No murmurs present (Cardio) and Peripheral pulses 2+ throughout RATE: regular rate RHYTHM: regular rhythm HEART SOUNDS: S1 normal heart sound present and S2 normal heart sound present PERIPHERAL PULSES: Peripheral pulses 2+ throughout GI: COMMON NORMALS: Normal to inspection, nondistended, normoactive bowel sounds present, Soft to palpation, non-tender and no masses PALPATION: Yes Soft to palpation : COMMON NORMALS: Yes no CVA tenderness BLADDER/KIDNEY EXAM: Yes no CVA tenderness Back/Pelvis: COMMON NORMALS: no CVA tenderness Extremity: NARRATIVE EXTREMITY EXAM: Left hand?dorsal aspect near base of thumb. 1.5 cm linear superficial laceration noted no active bleeding. Patient has full range of motion in fingers and thumb. GENERAL: Yes normal exam except as noted Neuro: COMMON NORMALS: patient oriented x3 SENSORIUM/ORIENTATION: Yes alert GAIT: Yes Normal gait present Skin: GENERAL SKIN EXAM: dry skin Procedures Laceration Laceration 1: Site: hand (left hand) Side (If applicable): left Size (cm): 1.5 Description: linear Depth: simple, single layer Local Anesthetic: lidocaine 1% and with epi Amount of anesthesia used (mL): 3 Pre-repair: irrigated extensively (With normal saline and iodine wash) Skin layer closed with: nylon Size (cm): 4-0 Number of sutures: 4 Technique: simple, interrupted Course Vital Signs: Vital signs: Vital Signs Temperature 98.2 F 06/22/22 18:36 Pulse Rate 91 06/22/22 18:36 Respiratory Rate 16 06/22/22 18:36 Blood Pressure 155/94 06/22/22 18:36 Pulse Oximetry 98 06/22/22 18:36 Oxygen Delivery Me thod Room Air 06/22/22 18:36 MDM - Wound/Laceration Medical Decision Making Patient is a 36-year-old male comes to the ED with laceration to left hand. Injury occurred just prior to arrival. Patient was cutting some carpet with a steel box toe inserter and accidentally caused laceration to dorsal aspect of left hand near her thumb. He was able to get bleeding controlled using pressure bandage. Denies any other injuries or trauma. He has full range of motion in fingers and thumb. Patient up-to-date on tetanus. Vital stable. Left hand?dorsal aspect near base of thumb. 1.5 cm linear superficial laceration noted no active bleeding. Patient has full range of motion in fingers and thumb. Laceration was irrigated extensively with normal saline and iodine wash and lidocaine 1% with epi was used as local. 4 sutures were placed to close laceration site patient was stable for discharge home. He was sent home with a prescription for prophylactic antibiotic. Follow-up with PCP in the next 7 to 10 days for reevaluation and have sutures removed. Patient understood and agreed with plan. Discharge Plan Discharge Patient Disposition: Home Clinical Impression: Hand laceration Qualifiers: Encounter type: initial encounter Foreign body presence: without foreign body Laterality: left Qualified Code(s): S61.412A - Laceration without foreign body of left hand, initial encounter Condition: Stable Prescriptions: New cephalexin 500 mg capsule 500 mg PO Q6H 4 Days Qty: 16 0RF No Action albuterol sulfate 90 mcg/actuation aero powdr breath act w/sensor 180 mcg INHALATION Q6H PRN Entresto 24-26 mg tablet 1 tab PO BID Qty: 180 3RF lisinopril 40 mg tablet 40 mg PO DAILY Qty: 30 0RF Rx Instructions: Stop 3 days before starting Entresto (Sacubitril/Valsartan) metoprolol succinate 25 mg tablet extended release 24 hr 25 mg PO DAILY Qty: 90 3RF acetaminophen 325 mg Tablet 650 mg PO Q4H PRN (Reason: Mild Pain Or Increase Temp) Qty: 30 0RF Adult Low Dose Aspirin 81 mg tablet,delayed release (DR/EC) 81 mg PO DAILY Qty: 30 0RF Discharge Orders: Discharge ED (Routine); Ordered 06/22/22 Ordered By: Jeancarlos Butts Discharge Diet: Regular Discharge Activity: Resume usual activity Patient Instructions: Laceration (ED) Activity Restrictions/Additional Instructions: Take full course of antibiotics as prescribed. Keep laceration site clean and dry daily. Clean daily with soap and water and cover with bandage. Watch for signs of infection such as redness, warmth, increased tenderness and puslike drainage. If you see the signs of infection return to the ED, urgent care or PCP for reevaluation. call your PCP to schedule a follow-up appointment for reevaluation and suture removal in about 7- 10 days. Continue taking all home meds. Follow discharge plans as discussed. You can return to the ED if symptoms worsen. Coding Level of Care Code ED Outside Event Sales Specialist for Jose Zamudio
--- NOTE | 2022-06-29 11:02 | DCPLANNER ---
manager subway called patient due to no primary care physician - patient declines at this time.
--- NOTE | 2022-07-01 15:48 | PC.NURSE ---
Pt here to have stitches removed. Stitches removed without difficulty, steri-strips placed. Pt tolerated well.
== END 2022-06-22 20:20 | disposition home or self-care (01) ==
PROVIDERS: Emergency Provider Physician Assistant
DX: S61.412A Laceration without foreign body of left hand, initial encounter (principal); Z79.82 Long term (current) use of aspirin; W26.0XXA Contact with knife, initial encounter; F17.210 Nicotine dependence, cigarettes, uncomplicated; I10 Essential (primary) hypertension
CPT/HCPCS: 12001; 99283

== ENCOUNTER 2023-02-26 01:52 | Emergency (ER) | payer SELFPAY ==
[2023-02-26 01:56] VITALS: BP 176/122; PULSE 76; RESP 17; TEMP 37.1; O2SAT 97; BMI 36.5
--- NOTE | 2023-02-26 02:37 | W.ED.DENTAL ---
HPI - Dental/Oral General: Chief complaint: Dental/Oral Stated complaint: facial swelling Time Seen by Provider: 02/26/23 01:59 History of Present Illness: 37-year-old male patient presenting with left upper jaw pain for the past couple of days. He states that he has bad teeth. He became concerned when his left face started to swell, from his upper jaw to the lower part of his left eyelid. No pain with extraocular movements. No discharge from the eye. No fever. He states he has a pressure sensation under his ey. Associated symptoms: Denies ear or mastoid pain, fever(s) or odynophagia Review of Systems Const: Denies: fever(s) Eyes: Denies: change in vision or blurry vision ENMT: Reports: mouth pain and dental pain; Denies: throat pain, odynophagia, hoarseness, swelling of lips/tongue, ear or mastoid pain, change in hearing or nasal obstruction Card: Denies: chest pain Resp: Denies: dyspnea GI: Denies: abdominal pain or vomiting PFSH ED PFSH: Medical History Benign essential hypertension with target blood pressure below 140/90 Leg swelling Cough Laceration of index finger without complication Dental abscess Kidney stones No pertinent past medical history Surgical History No pertinent past surgical history Family History Mother CAD (coronary artery disease) Diabetes Hyperlipidemia Hypertension Grandmother Cancer Dementia Grandfather Lung disease Denies family history of Clotting disorder Psychiatric illness Chronic kidney disease (CKD) Suicide Anesthesia complication Bleeding disorder Family history of premature coronary artery disease Stroke Social History Smoking and tobacco/nicotine status: current every day tobacco/nicotine user cigarettes Packs smoked per day: 1 Alcohol intake: former Substance/Drug Use: former Lives independently: Yes Household members: significant other 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 Physical Exam Const: COMMON NORMALS: no acute distress GENERAL APPEARANCE: cooperative; not ill appearing HENMT: COMMON NORMALS: normocephalic, atraumatic and Normal external nose present HEAD & SCALP: normocephalic and atraumatic; no Acrocyanosis present FACE & SINUS: edema on the left (Maxillary); no erythema and no Acrocyanosis present NOSE: Normal external nose present and Normal nares present TYMPANIC MEMBRANE: TM normal on the left MOUTH: Normal oral and palatal mucosa present TEETH & GINGIVA: Yes poor dentition and Yes other (Abscess near #15) THROAT: posterior oropharynx normal Eye: COMMON NORMALS: Equal, round and reactive pupils present and EOMs intact bilaterally PUPIL: Yes Equal, round and reactive pupils present Neck/C-Spine: COMMON NORMALS: full ROM Resp: COMMON NORMALS: normal respiratory effort Cardio: COMMON NORMALS: regular rate and regular rhythm RATE: regular rate RHYTHM: regular rhythm Course Vital Signs: Vital signs: Vital Signs Temperature 98.7 F 02/26/23 01:56 Pulse Rate 76 02/26/23 01:56 Respiratory Rate 17 02/26/23 01:56 Blood Pressure 176/122 02/26/23 01:56 Pulse Oximetry 97 02/26/23 01:56 Oxygen Delivery Me thod Room Air 02/26/23 01:56 MDM - Dental/Oral Medical Decision Making Encouraged to follow-up with a dentist. Instructions given. No sign of airway compromise. No radiology studies performed this visit Discharge Plan Discharge Patient Disposition: Home Clinical Impression: Dental abscess Condition: Stable Prescriptions: New clindamycin HCl 300 mg capsule 300 mg PO Q6H 10 Days Qty: 40 0RF ketorolac 10 mg tablet 10 mg PO TID PRN (Reason: pain) Qty: 10 0RF No Action albuterol sulfate 90 mcg/actuation aero powdr breath act w/sensor 180 mcg INHALATION Q6H PRN Entresto 24-26 mg tablet 1 tab PO BID Qty: 180 3RF lisinopril 40 mg tablet 40 mg PO DAILY Qty: 30 0RF Rx Instructions: Stop 3 days before starting Entresto (Sacubitril/Valsartan) metoprolol succinate 25 mg tablet extended release 24 hr 25 mg PO DAILY Qty: 90 3RF acetaminophen 325 mg Tablet 650 mg PO Q4H PRN (Reason: Mild Pain Or Increase Temp) Qty: 30 0RF Adult Low Dose Aspirin 81 mg tablet,delayed release (DR/EC) 81 mg PO DAILY Qty: 30 0RF Discharge Orders: Discharge ED (Routine); Ordered 02/26/23 Ordered By: Aubrey Taveras Patient Instructions: Dental Abscess (ED), Opioid Safety, Pain Management Coding Level of Care Code ED Solar Sales Rep for Jose Zamudio
[2023-02-26] MEDS: dexamethasone 4 mg Tablet 10 MG PO (02:40)
[2023-02-26] MEDS: clindamycin 150 mg Capsule 300 MG PO (02:41)
[2023-02-26 02:42] VITALS: RESP 18; O2SAT 95
[2023-02-26] MEDS: oxyCODONE-APAP 5-325 mg Tablet 1 TAB PO (02:42)
[2023-02-26 02:47] VITALS: BP 163/109; PULSE 76; RESP 18; O2SAT 97
== END 2023-02-26 02:47 | disposition home or self-care (01) ==
PROVIDERS: Emergency Provider Emergency Medicine
DX: K04.7 Periapical abscess without sinus (principal); Z79.82 Long term (current) use of aspirin; F17.210 Nicotine dependence, cigarettes, uncomplicated; I10 Essential (primary) hypertension
CPT/HCPCS: 99283; J8540

== ENCOUNTER → 2024-02-12 09:49 | Outpatient (BNVA) | payer SELFPAY | DX: I50.9 Heart failure, unspecified (principal) | CPT/HCPCS: 80053; 85025 ==

== ENCOUNTER → 2024-04-15 08:37 | Outpatient (BNVA) | payer SELFPAY | DX: I10 Essential (primary) hypertension (principal); I50.9 Heart failure, unspecified | CPT/HCPCS: 80053; 80061 ==

== ENCOUNTER → 2024-04-22 11:35 | Outpatient (BNVA) | payer SELFPAY | PROVIDERS: Visit Provider Internal Medicine Cardiovascular Disease | DX: R06.02 Shortness of breath (principal); R07.9 Chest pain, unspecified; I10 Essential (primary) hypertension; I50.9 Heart failure, unspecified; I42.8 Other cardiomyopathies; I40.1 Isolated myocarditis; E78.5 Hyperlipidemia, unspecified; I51.7 Cardiomegaly | CPT/HCPCS: 36415; 83880; 93005 ==

== ENCOUNTER 2024-05-17 08:05 | Outpatient (CLI) | payer SELFPAY ==
--- NOTE | 2024-05-17 08:30 | USCV_ITS ---
Aubrey Astorga Age: 38 Gender: M : 1985 Exam Date: 05/17/2024 08:47 Ordering Phys: Renetta Astorga MD ([email or web address]) Technologist: CT [place]am [place] [facility] [place]: BP: 158 / 100 HR: 46 Rhythm: Sinus Technical Quality: Adequate MEASUREMENTS (Male / Female) Normal Values 2D ECHO LVOT Diameter 2.2 cm LV Ejection Fraction MOD 4C 50.0 % LV Ejection Fraction MOD 2C 36.5 % LV Ejection Fraction 2C AL 37.1 % LA Diameter 3.8 cm RA Systolic Volume 4C AL 79.0 ml RA Systolic Volume 4C MOD 74.1 ml LA Sys Volume AL 89.6 cm cubed LA Sys Volume Index AL 31.3 cm cubed/m squared Aorta at Sinotubular Diameter 2.4 cm M-MODE LA Ao Ratio MM 1.2 AV Cusp Separation MM 2.6 cm DOPPLER AV Peak Velocity 167.0 cm/s LVOT Peak Velocity 85.0 cm/s AV Area Cont Eq vti 2.2 cm squared AV Area Cont Eq pk 1.9 cm squared MV Peak Velocity 95.0 cm/s MV Area PHT 2.1 cm squared Mitral E to A Ratio 2.5 TR Peak Velocity 217.0 cm/s TR Peak Gradient 18.8 mmHg TV Peak E Velocity 63.0 cm/s PV Peak Velocity 98.0 cm/s FINDINGS Left Ventricle Technically limited quality echocardiogram because of poor ultrasonic windows. Grossly LV systolic function appears mildly reduced. Regional wall motion abnormalities can not be accurately assessed because of poor visualization. Right Ventricle Normal in size and function Right Atrium Normal in size Left Atrium Normal in size Mitral Valve Grossly normal. Trace mitral regurgitation Aortic Valve Grossly normal. No significant stenosis or regurgitation. Tricuspid Valve Insufficient TR jet to evaluate RVSP. Pulmonic Valve Not well visualized Pericardium Normal Aorta Normal in size IVC Not visualized CONCLUSIONS Technically limited quality echocardiogram because of poor ultrasonic windows. Grossly LV systolic function appears mildly reduced. Trace mitral regurgitation Bay Vizcarra MD (Electronically Signed) Final Date: 18 May 2024 11:36 S
== END 2024-05-17 08:06 | disposition home or self-care (01) ==
PROVIDERS: Visit Provider Internal Medicine Cardiovascular Disease
DX: R06.09 Other forms of dyspnea (principal); R93.1 Abnormal findings on diagnostic imaging of heart and coronary circulation
CPT/HCPCS: 93306

== ENCOUNTER → 2024-06-26 10:05 | Outpatient (BNVA) | payer SELFPAY | PROVIDERS: Visit Provider Nurse Practitioner Family | DX: I42.8 Other cardiomyopathies (principal) | CPT/HCPCS: 93005 ==

== ENCOUNTER → 2024-09-03 11:25 | Outpatient (BNVA) | payer BC, MEDICAID, SELFPAY | DX: E66.9 Obesity, unspecified (principal); E78.5 Hyperlipidemia, unspecified | CPT/HCPCS: 80053; 80061; 84443 ==

== ENCOUNTER → 2024-10-21 12:02 | Outpatient (BNVA) | payer BC, MEDICAID, SELFPAY | PROVIDERS: Visit Provider Internal Medicine Cardiovascular Disease | DX: R06.02 Shortness of breath (principal) | CPT/HCPCS: 36415; 80048; 83880 ==

== ENCOUNTER 2024-11-19 06:06 | Outpatient (CLI) | payer BC, MEDICAID, SELFPAY ==
--- NOTE | 2024-11-19 06:15 | USCV_ITS ---
Aubrey Astorga Age: 39 Gender: M : 1985 Exam Date: 11/19/2024 06:16 Ordering Phys: Renetta Astorga MD ([email or web address]) Technologist: Exam Location: [facility] Indication: ef BP: 120 / 70 HR: Rhythm: Sinus Technical Quality: MEASUREMENTS (Male / Female) Normal Values 2D ECHO LVOT Diameter 2.0 cm LV Ejection Fraction MOD 4C 59.3 % LV Ejection Fraction MOD 2C 55.6 % LV Ejection Fraction 2C AL 56.0 % LA Diameter 4.3 cm RA Systolic Volume 4C AL 44.5 ml RA Systolic Volume 4C MOD 39.7 ml Aorta at Sinotubular Diameter 3.6 cm IVC Diameter 2.5 cm M-MODE LA Ao Ratio MM 1.1 AV Cusp Separation MM 3.1 cm FINDINGS Left Ventricle Normal LV size with an ejection fraction of around 56%. No gross wall motion normalities noted. Right Ventricle Appears to be of normal size send ejection fraction Right Atrium Normal right atrial size. Left Atrium Normal left atrial size. Mitral Valve No gross abnormalities noted Aortic Valve No gross abnormalities noted Tricuspid Valve No gross abnormalities noted Pulmonic Valve Pulmonic valve not well visualized. Pericardium No pericardial effusion. Aorta Normal aortic annulus size. IVC Inferior vena cava not visualized. CONCLUSIONS Normal LV size with an ejection fraction of around 56%. No gross wall motion normalities noted. Normal chamber sizes. There is no pericardial effusion. There are no intracardiac masses. Compared to the study from 10/16/2020, there is significant improvement in the LV ejection fraction from 40% to 56 %. Dr Renetta Astorga MD [facility] (Electronically Signed) Final Date: 24 November 2024 20:18 S
== END 2024-11-19 06:07 | disposition home or self-care (01) ==
LOC: RAD 06:06
PROVIDERS: Visit Provider Internal Medicine Cardiovascular Disease
DX: I42.9 Cardiomyopathy, unspecified (principal)
CPT/HCPCS: 93308

== ENCOUNTER → 2024-12-10 12:16 | Outpatient (BNVA) | payer BC, MEDICAID, SELFPAY | PROVIDERS: Visit Provider Family Medicine | DX: Z01.818 Encounter for other preprocedural examination (principal) | CPT/HCPCS: 80053; 83036; 85025 ==

== ENCOUNTER 2024-12-18 10:16 | Day surgery (SDC) | payer BC, MEDICAID, SELFPAY ==
[2024-12-18] VITALS (9 sets, daily range): BP systolic 120–158; BP diastolic 82–109; PULSE 66–95; RESP 12–20; TEMP 36.3–36.4; O2SAT 94–99; BMI 33.8
--- NOTE | 2024-12-18 10:45 | P.ANESASSM_ITS ---
Pre-Anesthetic Assessment Height/Weight: Height 6 ft 4 in Preop Diagnosis: Pilonidal cyst Operation Date: 12/18/24 13:35 Proposed Procedures p Pilonidal Cystectomy Excision of Pilonidal Cyst 78043 L05.91(Not Applicable) - Joo Sol MD Was Beta Estela taken within 24 hours: N/A Was Clonidine taken within 24 hours: N/A Social No alcohol and No tobacco Quit smoking 6 to 7 months ago Exam alert, oriented x 3, clear to auscultation bilaterally and regular rate & rhythm Airway Submandibular: within normal limits Cervical ROM: within normal limits Mallampati: Class III Comments: Comments: Large juarez Anesthetic Plan ASA status: 3 Anesthesia: General Other: No prior issues with anesthesia NPO since yesterday evening History of hypertension on carvedilol and lisinopril Prior CHF history 3-4 years ago during pneumonia episode Patient takes Ozempic, last taken 12/10/2024 Quit smoking 6/7 months ago Labs reviewed from 12/10/2024 Echo reviewed from 11/19/2024 showing EF of 56% with no RWMA Plan for GETA Medications/Allergies Home Medications ?Medication ?Instructions ?Recorded ?Confirmed ?Last Taken ?Type aspirin 81 mg tablet,delayed 81 mg PO DAILY #30 tabs 0 04/16/19 12/17/24 12/17/24 Rx release (Adult Low Dose Aspirin) lisinopril 40 mg tablet 40 mg PO DAILY #90 tabs 04/1312/17/24 12/17/24 Rx carvedilol 6.25 mg tablet 6.25 mg PO BID #180 tabs 05/0712/17/24 12/17/24 Rx omega 5-ocw-qhc-fish oil 60 mg-90 1 cap PO DAILY 07/1212/17/24 12/17/24 History mg-500 mg capsule (Fish Oil) semaglutide 1 mg/dose (4 mg/3 mL) 1 mg (0.75 mL) SUBCU T .weekly #3 mL 11/13/24 12/17/24 12/10/24 Rx subcutaneous pen injector Allergies Allergy/AdvReac Type Severity Reaction Status Date / Time No Known Allergies Allergy Verified 12/18/24 10:59 [facility] Anesthesia Medical History Cardiac LV ejection fraction 21-40% Abnormal skin growth Inflamed epidermoid cyst of skin Dyslipidemia Benign essential hypertension with target blood pressure below 140/90 Leg swelling Cough Laceration of index finger without complication Dental abscess Kidney stones No pertinent past medical history Surgical History Hx of lithotripsy No pertinent past surgical history Family History Mother CAD (coronary artery disease) Diabetes Hyperlipidemia Hypertension Grandmother Cancer Dementia Grandfather Lung disease Denies family history of Clotting disorder Psychiatric illness Chronic kidney disease (CKD) Suicide Anesthesia complication Bleeding disorder Family history of premature coronary artery disease Stroke Social History Smoking and tobacco/nicotine status: former use of tobacco/nicotine Alcohol intake: former Substance/Drug Use: former Lives independently: Yes Household members: significant other 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
--- NOTE | 2024-12-18 11:35 | W.PM.OPSFHP ---
Same Day Surgery H&P Indication for Procedure/HPI DATE OF PROCEDURE: December 18, 2024 CHIEF COMPLAINT/INDICATIONFOR SURGICAL PROCEDURE: pilonidal cyst PREOP DIAGNOSIS: Pilonidal cyst PLANNED PROCEDURE: Operation Date: 12/18/24 13:35 Proposed Procedures p Pilonidal Cystectomy Excision of Pilonidal Cyst 32719 L05.91(Not Applicable) - Joo Sol MD Medications/Allergies* Home Medications ?Medication ?Instructions ?Recorded ?Confirmed ?Type omega 4-eqy-chj-fish oil 60 mg-90 1 cap PO DAILY 07/12/24 12/18/24 History mg-500 mg capsule (Fish Oil) Allergies/Adverse Reactions Allergy/AdvReac Type Severity Reaction Status Date / Time No Known Allergies Allergy Verified 12/18/24 10:59 Pertinent History/Comorbid Conditions* Medical History (Updated 11/15/24 @ 09:38 by Joo Sol MD) Cardiac LV ejection fraction 21-40% Abnormal skin growth Inflamed epidermoid cyst of skin Dyslipidemia Benign essential hypertension with target blood pressure below 140/90 Leg swelling Cough Laceration of index finger without complication Dental abscess Kidney stones No pertinent past medical history Surgical History (Updated 09/30/24 @ 09:01 by Valerie Sheppard NP) Hx of lithotripsy No pertinent past surgical history Family History (Updated 04/23/19 @ 12:09 by Bertha Denise RN) Diabetes Mother CAD (coronary artery disease) Mother Dementia Grandmother Hyperlipidemia Mother Lung disease Grandfather Cancer Grandmother Hypertension Mother Denies family history of Clotting disorder Psychiatric illness Chronic kidney disease (CKD) Suicide Anesthesia complication Bleeding disorder Family history of premature coronary artery disease Stroke Social History Smoking and tobacco/nicotine status: former use of tobacco/nicotine Alcohol intake: former Substance/Drug Use: former Lives independently: Yes Household members: significant other 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 Had extensive discussion with the patient. Answered all of his questions. He understands the risks include bleeding, surgical site infection, wound dehiscence. Coding Level of Care Code Acute Code for g Fwd
[2024-12-18] MEDS: ceFAZolin 3,000 MG in sodium chloride 0.9% (plus) 100 ML 200 MG IV (12:02)
--- NOTE | 2024-12-18 12:39 | PM.OP ---
Operative Report Date of procedure: December 18, 2024 Pre-op diagnosis: Pilonidal cyst Post-op diagnosis: same Post-op findings: 3 x 2 cm pilonidal cyst excised. Procedure done: Pilonidal cyst excision Implants: N/A Specimens removed/disposition: Pilonidal cyst sent to pathology Pathology: Pilonidal cyst on the pathology Surgeon: Joo Sol MD Manager Restaurant: N/A Anesthesia: MAC Estimated blood loss (mL): 10 Complications: N/A Findings: 3 x 2 cm pilonidal cyst excised. Condition: stable Disposition: same day Brief History: 39-year-old male who presented with a pilonidal cyst. Discussed risk and benefits and patient agreed to proceed with pilonidal cyst excision. Procedure: Consent was obtained in the preop area. Patient was brought into the OR. Preoperative Ancef was administered. General anesthesia was induced. Patient was positioned prone. The perineum and back was prepped and draped in usual sterile fashion. Local infiltration using 1% lidocaine and 0.5% bupivacaine 10 cc was carried out. An elliptical incision was carried out around the pilonidal cyst (3x2cm). Electrocautery was used to dissect down to the fascial layer. The pilonidal cyst was then resected and was passed off and sent to pathology. Adequate hemostasis was achieved using electrocautery and suture ligation using 2-0 Vicryl. The fascial layer was closed using 2-0 Vicryl. Dermal layer was closed using 2-0 Vicryl in an interrupted fashion. Epidermis was closed with 2-0 nylon in a vertical mattress fashion. Fluffs were applied. Secured using mesh panties. The patient woke up for anesthesia without any complications.
[2024-12-18] MEDS: BUPivacaine 0.5% INJ 10 mL INJECTION (12:45)
[2024-12-18] MEDS: lidocaine-epi 1% 20 mL INJ 10 ML INJECTION (12:45)
--- NOTE | 2024-12-18 14:50 | ANE.PACU2 ---
Inpatient post-anesthesia follow up: Airway intact: Yes Vital signs: Temperature 97.4 F Pulse Rate 75 Respiratory Rate 16 Blood Pressure 131/83 Pulse Oximetry 97 Oxygen Delivery Me thod Room Air Oxygen Flow Rate Fraction of Inspir ed Oxygen Hydration adequate: Yes Nausea and vomiting: No Pain level: 2 Mental status: Baseline
== END 2024-12-18 14:10 | disposition home or self-care (01) ==
PROVIDERS: Visit Provider Student in an Organized Health Care Education/Training Program
PROC: (CPT 11770; principal; 2024-12-18 13:35)
DX: L05.91 Pilonidal cyst without abscess (principal); E78.5 Hyperlipidemia, unspecified; Z87.891 Personal history of nicotine dependence; I11.0 Hypertensive heart disease with heart failure; I50.9 Heart failure, unspecified; Z79.82 Long term (current) use of aspirin
CPT/HCPCS: 11770; 88304; A4216; J0690; J1100; J2250; J2405; J2704; J3010; J3490; J7030; J9999

== ENCOUNTER 2025-01-02 08:21 | Emergency (ER) | payer BC, MEDICAID, SELFPAY ==
[2025-01-02 08:58] VITALS: BP 142/85; PULSE 73; RESP 18; TEMP 36.7; O2SAT 97; BMI 33.0
[2025-01-02 09:52] LABS: Hematocrit 44.3 % (37-53); Hemoglobin 13.70 g/dL (11.27-16.99); Mean Corpuscular HGB Conc 30.9 g/dL (30-55); Mean Corpuscular Hemoglobin 26.0 pg (27-33); Mean Corpuscular Volume 84.1 fl (82-101); Nucleated Red Blood Cells % 0 %; Platelet Count 295 10^3/cmm (157-399); Red Blood Count 5.27 10^6/uL (3.85-5.65); White Blood Count 10.19 10^3/uL (3.29-11.43)
--- NOTE | 2025-01-02 09:57 | ED_ITS ---
HPI - Wound/Laceration 2 General: Chief Complaint: Wound/Laceration Stated Complaint: Wound on Lower middle back has smell to it Time Seen by Provider: 01/02/25 09:01 History of Present Illness: 39-year-old male had pilonidal cyst brenda odalis about 2 weeks ago was had fluid drainage intermittently. No fever sweats chills. Fluid has been clear. Associated symptoms: Denies chills or fever(s) Related Data Home Medications ?Medication ?Instructions ?Recorded ?Confirmed omega 2-zyk-fcm-fish oil 60 mg-90 1 cap PO DAILY 07/1201/02/25 mg-500 mg capsule (Fish Oil) Previous Rx's ?Medication ?Instructions ?Recorded aspirin 81 mg tablet,delayed 81 mg PO DAILY #30 tabs 0 04/16/19 release (Adult Low Dose Aspirin) Held on 12/18/24. Instructions: Resume on 12/19/24. lisinopril 40 mg tablet 40 mg PO DAILY #90 tabs 04/13 10/04 carvedilol 6.25 mg tablet 6.25 mg PO BID #180 tabs 05/07 semaglutide 1 mg/dose (4 mg/3 mL) 1 mg (0.75 mL) SUBCU T .weekly #3 mL 01/06/25 subcutaneous pen injector Allergies Allergy/AdvReac Type Severity Reaction Status Date / Time No Known Allergies Allergy Verified 12/18/24 10:59 Review of Systems 2 Const: Denies: fever(s) or chills Card: Denies: chest pain Resp: Denies: dyspnea GI: Denies: abdominal pain : Denies: dysuria, urinary frequency or urinary urgency Musc: Denies: neck pain or back pain Skin/Breast: Denies: rash PFSH ED 2 PFSH: Medical History Cardiac LV ejection fraction 21-40% Abnormal skin growth Inflamed epidermoid cyst of skin Dyslipidemia Benign essential hypertension with target blood pressure below 140/90 Leg swelling Cough Laceration of index finger without complication Dental abscess Kidney stones No pertinent past medical history Surgical History Hx of lithotripsy No pertinent past surgical history Family History Mother CAD (coronary artery disease) Diabetes Hyperlipidemia Hypertension Grandmother Cancer Dementia Grandfather Lung disease Denies family history of Clotting disorder Psychiatric illness Chronic kidney disease (CKD) Suicide Anesthesia complication Bleeding disorder Family history of premature coronary artery disease Stroke Social History Smoking and tobacco/nicotine status: former use of tobacco/nicotine Alcohol intake: former Substance/Drug Use: former Lives independently: Yes Household members: significant other Current occupation: [employer] Physical Exam 2 Const: COMMON NORMALS: no acute distress GENERAL APPEARANCE: cooperative and comfortable ORIENTATION/CONSCIOUSNESS: Yes awake, Yes oriented to person, Yes oriented to place and Yes oriented to time HENMT: COMMON NORMALS: normocephalic, atraumatic and hearing grossly normal bilaterally HEAD & SCALP: normocephalic and atraumatic Resp: COMMON NORMALS: normal respiratory effort, No retractions, No use of accessory muscles and clear to auscultation bilaterally AUSCULTATION: clear to auscultation bilaterally Cardio: COMMON NORMALS: regular rate, regular rhythm and No murmurs present (Cardio) RATE: regular rate RHYTHM: regular rhythm GI: COMMON NORMALS: Soft to palpation and No hepatosplenomegaly present A USCULTATION: Yes normoactive bowel sounds PALPATION: Yes Soft to palpation, No Tenderness to palpation present (GI), No Guarding due to palpation present (GI) and Yes No hepatosplenomegaly present Back/Pelvis: OTHER: Wound is well-approximated the lower portion of the wound there is some very slight dehiscence and a small area less than a centimeter. Cannot express any drainage. No redness no irritation no induration along the wound edges. Extremity: COMMON NORMALS: normal to inspection, capillary refill normal, no clubbing, cyanosis or edema, no calf tenderness and no pedal edema Neuro: SENSORIUM/ORIENTATION: Yes oriented to person, Yes oriented to place and Yes oriented to time Skin: COMMON NORMALS: no rashes or lesions noted GENERAL SKIN EXAM: no rashes or lesions noted Course 2 Vital Signs: Vital signs: Vital Signs Temperature 98.1 F 01/02/25 08:58 Pulse Rate 73 01/02/25 08:58 Respiratory Rate 18 01/02/25 08:58 Blood Pressure 142/85 01/02/25 08:58 Pulse Oximetry 97 01/02/25 08:58 Oxygen Delivery Me thod Room Air 01/02/25 08:58 MDM - Wound/Laceration Medical Decision Making Based on presentations believe she patient has a seroma there is no sign of infection at this time we will have him follow-up with surgeon. I discussed with the patient potential imaging after discussion we agreed to forego this for now based on his presenting symptoms and lab work. Medical Records I reviewed the patient's medical records. Lab Data I reviewed the patient's lab results. 01/02/25 09:37 01/02/25 09:37 Laboratory Results WBC 10.19 10^3/uL (3.29-11.43) 01/02/25 09:37 RBC 5.27 10^6/uL (3.85-5.65) 01/02/25 09:37 Hgb 13.70 g/dL (11.27-16.99) 01/02/25 09:37 Hct 44.3 % (37-53) 01/02/25 09:37 MCV 84.1 fl (82-101) 01/02/25 09:37 MCH 26.0 pg (27-33) L 01/02/25 09:37 MCHC 30.9 g/dL (30-55) 01/02/25 09:37 RDW 13.6 % (12.1-15.1) 01/02/25 09:37 Plt Count 295 10^3/cmm (157-399) 01/02/25 09:37 MPV 10.8 fL (7.4-10.4) H 01/02/25 09:37 Neut % (Auto) 58.8 % 01/02/25 09:37 Lymph % (Auto) 28.9 % 01/02/25 09:37 [place] % (Auto) 7.4 % 01/02/25 09:37 Eos % (Auto) 4.0 % 01/02/25 09:37 Baso % (Auto) 0.7 % 01/02/25 09:37 Neut # (Auto) 5.99 10^3/uL (1.8-7.7) 01/02/25 09:37 Lymph # (Auto) 3.0 10^3/uL (0.8-4.8) 01/02/25 09:37 [place] # (Auto) 0.8 10^3/uL (0.2-0.9) 01/02/25 09:37 Eos # (Auto) 0.4 10^3/uL (0.0-0.8) 01/02/25 09:37 Baso # (Auto) 0.1 10^3/uL (0.0-0.1) 01/02/25 09:37 Nucleated RBC % (auto) 0 % 01/02/25 09:37 Nucleated RBCs # 0.0 /100WBC 01/02/25 09:37 Sodium 140 mmol/L (136-145) 01/02/25 09:37 Potassium 4.4 mmol/L (3.5-5.1) 01/02/25 09:37 Chloride 103 mmol/L (98-107) 01/02/25 09:37 Carbon Dioxide 26 mmol/L (22-29) 01/02/25 09:37 Anion Gap 15.4 (5-19) 01/02/25 09:37 BUN 11 mg/dL (6-20) 01/02/25 09:37 Creatinine 0.8 mg/dL (0.7-1.2) 01/02/25 09:37 GFR Calculation 107.1 mL/min (90-130) 01/02/25 09:37 Glucose 92 mg/dL (65-115) 01/02/25 09:37 Calculated Osmolality 289 mOsm/kg (285-295) 01/02/25 09:37 Calcium 9.1 mg/dL (8.5-10.5) 01/02/25 09:37 Total Bilirubin 0.4 mg/dL (0.15-1.2) 01/02/25 09:37 AST 13 U/L (0-40) 01/02/25 09:37 ALT 9 U/L (0-41) 01/02/25 09:37 Alkaline Phosphatase 77 U/L (40-130) 01/02/25 09:37 Total Protein 6.9 g/dL (6.6-8.7) 01/02/25 09:37 Albumin 4.0 g/dL (3.5-5.2) 01/02/25 09:37 Globulin 2.9 g/dL (1.3-4.6) 01/02/25 09:37 No radiology studies performed this visit Discharge Plan Discharge Patient Disposition: Home Clinical Impression: Postoperative seroma Condition: Stable Prescriptions: No Action omega 3-ywm-dxf-fish oil [Fish Oil] 60-90-500 mg capsule 1 cap PO DAILY carvedilol 6.25 mg tablet 6.25 mg PO BID Qty: 180 1RF Rx Instructions: must administer with a meal/food lisinopril 40 mg tablet 40 mg PO DAILY Qty: 90 3RF semaglutide 1 mg/dose (4 mg/3 mL) pen injector 1 mg SUBCUT .weekly Qty: 3 1RF Rx Instructions: Monday aspirin [Adult Low Dose Aspirin] 81 mg tablet,delayed release (DR/EC) 81 mg PO DAILY Qty: 30 0RF Discharge Orders: Discharge ED (Routine); Ordered 01/02/25 Ordered By: Abdoulaye Mccarty Referrals: Valerie Sheppard, SNOW PLOW OPERATOR [Primary Care Provider, Family Practice] Discharge Diet: Usual diet Discharge Activity: Resume usual activity Patient Instructions: Opioid Safety, Pain Management, Patient Portal & [place] Instructions Activity Restrictions/Additional Instructions: Thank you for choosing [facility] for your healthcare needs today. It is very important that you follow up as instructed or that you return to the Emergency Department should you have concerns or if your condition changes or worsens in any way. Emergency department visits are focused on emergent conditions, in some cases you may require further evaluation on an outpatient basis. You are seen emergency room with complaints of drainage from your surgical wound. The drainage is clear your white count was normal this appears to be a seroma. This is when fluid builds up in the tissue after surgery it is not infectious this will usually be a self-limiting process. Follow-up with the surgeon as you previously had scheduled. (Please note that included in your discharge packet is information concerning opioid safety and pain management. This information is given to all patients were discharged from the ER regardless of their discharge diagnosis or the medicines they usually take or are prescribed.) Print Language: Greenlandic Coding Level of Care Code ED Proposal Lead Writer for Jose Zamudio
[2025-01-02 10:09] LABS: Alanine Aminotransferase 9 U/L (0-41); Albumin Level 4.0 g/dL (3.5-5.2); Alkaline Phosphatase 77 U/L (40-130); Anion Gap 15.4 (5-19); Aspartate Amino Transferase 13 U/L (0-40); Blood Urea Nitrogen 11 mg/dL (6-20); Calcium 9.1 mg/dL (8.5-10.5); Carbon Dioxide 26 mmol/L (22-29); Chloride 103 mmol/L (98-107); Creatinine Clr Calc Pharmacy 175.7806; Globulin 2.9 g/dL (1.3-4.6); Glucose 92 mg/dL (65-115); Osmolality Calculated 289 mOsm/kg (285-295); Potassium 4.4 mmol/L (3.5-5.1); Sodium 140 mmol/L (136-145); Total Protein 6.9 g/dL (6.6-8.7)
== END 2025-01-02 11:04 | disposition home or self-care (01) ==
PROVIDERS: Emergency Provider Family Medicine
DX: L76.34 Postprocedural seroma of skin and subcutaneous tissue following other procedure (principal); Z79.82 Long term (current) use of aspirin; Z87.891 Personal history of nicotine dependence; E78.5 Hyperlipidemia, unspecified; I10 Essential (primary) hypertension
CPT/HCPCS: 36415; 80053; 85025; 87040; 99283